=== PATIENT | female | born 1995 | race Caucasian/White ===

== ENCOUNTER 2022-05-08 11:38 | Emergency (ER) | payer SELFPAY ==
[2022-05-08 11:39] VITALS: BP 116/73; PULSE 97; RESP 16; TEMP 35.5; O2SAT 98; BMI 33.8
--- NOTE | 2022-05-08 12:17 | EDS_ITS ---
HPI History of Present Illness Chief Complaint: Eye Problem Informant: patient Narrative Narrative: 1 week history of left eye itching and burning. With redness. Denies trauma. Patient history of both nearsighted and farsighted supposed to wear bifocals. Cannot recall her previous eye exam. Denies visual changes but denies headache. Denies nausea vomiting. She looked online and had noted possible glaucoma therefore did not want to ignore it. Seasonal allergies. Denies any daily medications at home. PFSH PFS Medical History no medical history Home Medications olopatadine 0.1 % eye drops (Pataday Twice Daily Relief) 1 drp LEFT EYE BID #5 mL 05/08/22 [Rx Last Taken Unknown] Allergy/AdvReac Type Severity Reaction Status Date / Time No Known Allergies Allergy Verified 05/08/22 11:43 ROS ROS ED Constitutional Constitutional ED: Denies chills, fever(s) or sweats Eyes Eyes: Reports other Details: Left eye erythema with itching ; Denies blurry vision or change in vision ENT ENT ED: Denies dysphagia or sore throat Cardiovascular Cardiovascular: Denies chest pain, leg edema, palpitations or racing heartbeat Respiratory/Chest Respiratory/Chest: Denies cough, dyspnea or dyspnea on exertion Gastrointestinal Gastrointestinal: Denies abdominal pain, diarrhea, nausea or vomiting Genitourinary Genitourinary ED: Denies dysuria, hematuria or urinary frequency Musculoskeletal Musculoskeletal: Denies back pain, extremity pain or neck pain Integumentary Denies rash or wounds Neurologic Neurologic: Denies headache(s), paresthesias or weakness EXAM Physical Exam Const Vital Signs: 05/08/22 11:39 Temperature 96 F L Temperature Source Temporal Pulse Rate 97 Respiratory Rate 16 Blood Pressure 116/73 Blood Pressure Mean 87 Pulse Ox 98 Oxygen Delivery Method Room Air Positive well nourished and well developed General Appearance ED: well developed and NAD HEENT Reports moist mucous membranes normocephalic and atraumatic Eyes PERRL and EOMs intact bilaterally Eyes Narrative: Left eye: There is erythema medial inferior sclera. Pupils not fixed. Consensual constriction with light evaluation. Visual acuity: 20/40 OD, 20/30 OS, 20/20 OU General Eye ED: Yes normal appearance of both eyes Neck no lymphadenopathy and supple General: Negative for tenderness Chest Wall Chest: Negative for tenderness Resp normal respiratory effort and normal air movement Effort and Inspection: symmetric chest movement; Negative for respiratory distress Cardio regular rate, regular rhythm and no murmurs Peripheral Pulses: pulses 2+ throughout GI normal to inspection, nondistended, normoactive bowel sounds and non-tender Palpation: Negative for guarding or rebound tenderness present Back/Spine no CVA tenderness and no thoracic nor lumbar tenderness Extremity normal to inspection General Extremety ED: Negative for edema or tenderness General Extremity: Negative for edema Neuro oriented x3 and no sensory deficits noted Sensorium / Orientation: awake and alert Skin no rashes or lesions noted and no wounds MDM MDM MDM Narrative Medical decision making narrative: Visual acuity better in left eye. Clinical history concerns for allergic conjunctivitis. She is placed on Pataday twice a day for her symptoms. She is given follow-up with ophthalmology. No clinical symptoms for glaucoma. Discharge Plan Triage Chief Complaint: Eye Problem ED Provider: Miguel Rocha Dx/Rx/DC Orders Clinical Impression: Acute allergic conjunctivitis, Redness of eye, left, Itch of eye, left Instructions: ED Conjunctivitis, Allergic Prescriptions: New olopatadine [Pataday Twice Daily Relief] 0.1 % drops 1 drp LEFT EYE BID Qty: 5 0RF Rx Instructions: separate doses by at least 6-8 hours Primary Care Provider: Care Physician,No Primary Referrals: Chandrakant Mcclellan MD [Med Staff - Active Staff] - 3-5 Days [facility] Doctor,Out of [Non-Staff] - Activity Restrictions/Additional Instructions: Use eyedrops left eye twice a day for symptoms. Follow-up with ophthalmology as an outpatient. Disposition Disposition: Home, Self Care
--- NOTE | 2022-05-08 13:01 | CM.ED ---
FRANK noted that patient has no PCP and no insurnance. SW provided patient with financial packet. Patient moved to [place] from [place]. Patient said that as a result of Riki Barraza she moved to [place] as I am a walking felony.. I still have my IUD inside me. SW also provided her with resource list and [facility] phone number for crisis. Adelina SCHOFIELD
== END 2022-05-08 13:14 | disposition home or self-care (01) ==
PROVIDERS: Emergency Provider Emergency Medicine; Visit Provider Emergency Medicine
DX: H10.12 Acute atopic conjunctivitis, left eye (principal)
CPT/HCPCS: 99282

== ENCOUNTER 2023-06-12 16:11 | Emergency (ER) | payer MEDICAID, SELFPAY ==
[2023-06-12 16:12] VITALS: BP 107/70; PULSE 99; RESP 16; TEMP 36.1; O2SAT 100; BMI 28.8
--- NOTE | 2023-06-12 16:50 | ED.VIS.CHEST ---
HPI History of Present Illness Chief Complaint: Chest Other Informant: patient Narrative Narrative: 27-year-old female presenting to the emergency room with chest pain and palpitations. Patient states that she is about to enter her third trimester of . She states that she has been trying to get health insurance. She started applying 1 week ago. She states that she received word today that she had health insurance. She comes in today stating that she has been experiencing burning chest pain which is not uncommon for her but also has been having racing heart. She denies any vaginal bleeding or leakage of fluid. No shortness of breath. She has taken some Tums. She notes that this is her third . She had a miscarriage previously. No leg swelling. She notes that the burning in her chest is midsternal starts near the xiphoid and radiates up towards her sternal notch. Heart races intermittently. She states that she is genetically predispositions to heart attack but has never had 1. She states that what she means by this is that she has symptoms of heart attack that never amounts to a heart attack. Patient has been taking vitamins. She admits to vaping. PFSH PFSH Home Medications calcium carbonate 200 mg calcium (500 mg) chewable tablet (Antacid (calcium carbonate)) 400 mg (2 x 200 mg calcium (500 mg)) PO Q4H PRN dyspepsia #60 tabs 06/12/23 [Rx Last Taken Unknown] Allergy/AdvReac Type Severity Reaction Status Date / Time No Known Allergies Allergy Verified 06/12/23 16:12 Social History Smoking Status: Heavy Smoker (>10/day) ROS ROS ED Constitutional Constitutional ED: Denies chills or weight loss Eyes Eyes: Denies change in vision or diplopia ENT ENT ED: Denies ear pain, rhinorrhea or sore throat Cardiovascular Cardiovascular: Reports chest pain, palpitations and racing heartbeat; Denies orthopnea Respiratory/Chest Respiratory/Chest: Denies cough, dyspnea, dyspnea on exertion or orthopnea Gastrointestinal Gastrointestinal: Reports other Details: Increased belching. ; Denies abdominal pain, diarrhea, nausea or vomiting Genitourinary Genitourinary ED: Denies dysuria, hematuria or urinary frequency Musculoskeletal Musculoskeletal: Denies arthralgias or myalgias Integumentary Denies abscess or rash Neurologic Neurologic: Denies headache(s) or weakness Psychiatric Psychiatric: Denies anxiety, depression, suicidal ideation or suicidal thoughts Endocrine Endocrinology: Denies polydipsia, polyphagia or polyuria Allergic/Immunologic Allergic/Immunologic ED: Denies mouth swelling, tongue swelling or urticaria EXAM Physical Exam Const Vital Signs: 06/12/23 16:12 06/12/23 17:57 06/12/23 18:23 Temperature 97 F L Temperature Source Temporal Pulse Rate 99 88 88 Respiratory Rate 16 19 H 18 Blood Pressure 107/70 103/66 104/67 Blood Pressure Mean 82 78 79 Pulse Ox 100 99 99 Oxygen Delivery Method Room Air Room Air Positive well nourished and well developed General Appearance ED: well developed HEENT Reports normocephalic, head/scalp atraumatic and moist mucous membranes Eyes PERRL and EOMs intact bilaterally Neck no lymphadenopathy, supple and no JVD Resp normal respiratory effort and clear to auscultation bilaterally Cardio regular rate, regular rhythm and no murmurs GI normal to inspection, nondistended, normoactive bowel sounds and non-tender Palpation: soft Back/Spine no CVA tenderness and normal ROM Extremity normal to inspection General Extremety ED: Negative for edema General Extremity: Negative for edema Neuro oriented x3 and CN's II-XII intact bilaterally Sensorium / Orientation: alert Motor Exam: strength 5/5 throughout Psych Mood & Affect: Negative for depressed or tearful Skin no rashes or lesions noted and no wounds MDM MDM MDM Narrative Medical decision making narrative: Bedside ultrasound shows a heart rate of 138 bpm. Patient has good movement and the patient can feel movement. White count is 15.7 hemoglobin 10.6. There is 7 bands. 14 lymphocytes 67 neutrophils. 3 myelocytes. BMP showed a glucose of 85. Liver enzymes showed an AST of 68 ALT of 57 total bilirubin 0.30 and alkaline phosphatase at 121. Magnesium 2.0. Urinalysis is Pont is a for cannabinoids and and a formal UA demonstrates 5-10 squamous cells rarer bacteria which most likely is a contaminant. Negative nitrates leukocyte esterase and 0-5 white cells. My independent interpretation of the chest x-ray is no acute process. The patient has had no dysrhythmias on the monitor. At this point I will write the patient to have some antacids and would recommend following up with [facility]. She is to refrain from vaping. She should continue her multivitamins. I did recommend [facility] follow-up as soon as possible. As far as the bandemia goes I am unclear of the significance at this time. She is not having any fevers rashes or infectious symptomology. Her chest x-ray does not show infection. The uterus is nontender. Patient and I did discuss these findings. History & Record Review Discussion w/independent historian: Patient Lab Data Attestation: I reviewed the patient's lab results. Labs: Laboratory Results - last 24 hr 06/12/23 16:56 WBC 15.7 H RBC 3.40 L Hgb 10.6 L Hct 32.2 L MCV 94.7 MCH 31.2 MCHC 32.9 RDW Std Deviation 44.7 H RDW Coeff of Melina 13.1 Plt Count 236 MPV 9.5 Neut % (Auto) Not Reportable Absolute Neuts (auto) 11.7 H Absolute Lymphs (auto) 2.20 Total Counted 100 Neutrophils % (Manual) 67 Band Neutrophils % 7 H Lymphocytes % (Manual) 14 L Monocytes % (Manual) 5 Eosinophils % (Manual) 2 Basophils % (Manual) 1 Metamyelocytes % 1 Myelocytes % 3 H Diff Path Review May foll Platelet Estimate ADEQUATE RBC Morphology N CHROM Anisocytosis RARE Macrocytosis RARE Sodium 138 Potassium 3.9 Chloride 108 H Carbon Dioxide 25.0 Anion Gap 5 BUN 11 Creatinine 0.60 Estim Creat Clear Calc 122.70 Est GFR (MDRD) Af Amer 156 Est GFR (MDRD) Non-Af 129 BUN/Creatinine Ratio 18.5 Glucose 85 Calcium 9.0 Magnesium 2.0 Total Bilirubin 0.30 Direct Bilirubin 0.11 AST 68 H ALT 57 H Alkaline Phosphatase 121 H Total Protein 6.9 Albumin 2.9 L Globulin 4.0 Urine Color Yellow Urine Clarity Cloudy Urine pH 8.0 Ur Specific [place] 1.010 Urine Protein 15 H Urine Glucose (UA) Normal Urine Ketones Negative Urine Occult Blood Negative Urine Nitrite Negative Urine Bilirubin Negative Urine Urobilinogen Normal Ur Leukocyte Esterase 25 H Urine RBC 0 SEEN Urine WBC 0-5 SEEN Ur Squamous Epith Cells 5-10 SEEN Amorphous Sediment 3+ Urine Bacteria RARE Urine Mucus 0 SEEN Urine Opiates Screen NEGATIVE Urine Methadone Screen NEGATIVE Ur Barbiturates Screen NEGATIVE Ur Phencyclidine Scrn NEGATIVE Ur Amphetamines Screen NEGATIVE MDMA (Ecstasy) Screen NEGATIVE U Benzodiazepines Scrn NEGATIVE Urine Cocaine Screen NEGATIVE U Cannabinoids Screen POSITIVE H Ur Drug Screen Comment EKG Initial EKG: Attestation: I personally reviewed and interpreted this EKG as follows: Comments: Normal sinus rhythm with a ventricular rate of 97 bpm. No preexcitation or prolonged QT noted. Discharge Plan Triage Chief Complaint: Chest Other ED Provider: Nasir Greene Dx/Rx/DC Orders Clinical Impression: Heart palpitations, , Chest pain, GERD (gastroesophageal reflux disease), Bandemia Instructions: ED GERD (Adult), ED Palpitations, ED Established ... Prescriptions: New calcium carbonate [Antacid (calcium carbonate)] 200 mg calcium (500 mg) tablet,chewable 400 mg PO Q4H PRN (Reason: dyspepsia) Qty: 60 0RF Primary Care Provider: Care Physician,No Primary Referrals: Diamond Khoury MD [Med Staff - Active Staff] - As soon as possible Care Physician,No Primary [Primary Care Provider] -
[2023-06-12 17:07] LABS: Mucous, Urine 0 SEEN /hpf (<or=2+); Red Blood Cells-Urine 0 SEEN /hpf (0-5)
[2023-06-12 17:11] LABS: Color, Urine Yellow (Yellow); Glucose, Dipstick Normal (Normal); Hematocrit 32.2 % (37-47); Hemoglobin 10.6 g/dL (12.0-15.0); Ketone-Dipstick Negative (Negative); Leukocyte Esterase-Dipstick 25 /ul (Negative); Mean Corp Hgb Conc 32.9 g/dL (32-36); Mean Corpuscular Hgb 31.2 pg (27.0-32.0); Mean Corpuscular Volume 94.7 fL (81-99); Mean Platelet Vol. 9.5 fl (6.2-12.0); Nitrite-Dipstick Negative (Negative); Occult Blood-Urine Negative /ul (Negative); POSITIVE COUNT YES; POSITIVE MORPHOLOGY YES; Platelet Count 236 K/mm3 (150-450); Protein-Dipstick 15 mg/dl (Negative); RBC Distribution Width CV 13.1 % (11.6-14.6); RBC Distribution Width SD 44.7 fl (35.1-43.9); Urine Bilirubin Dipstick Negative (Negative); Urine Clarity Cloudy (Clear); Urine Urobilinogen Normal (Normal); White Blood Count 15.7 K/mm3 (4.4-11.0)
[2023-06-12 17:22] LABS: Differential Indicated MANUAL DIFF
[2023-06-12 17:28] LABS: AST(SGOT) 68 U/L (15-37); Alanine Aminotransfer ALT/SGPT 57 U/L (13-56); Albumin, Serum 2.9 g/dL (3.2-5.0); Alkaline Phosphatase 121 U/L (45-117); Anion Gap 5 (5-15); BUN 11 mg/dL (7-18); BUN/Creat Ratio 18.5 RATIO (10-20); Bilirubin, Direct 0.11 mg/dL (0.00-0.30); Chloride 108 mmol/L (98-107); EST Glomerular Filtration Rate 129 mL/min (>60); Est Glom Filt Rate - Afr Amer 156 mL/min (>60); Glucose 85 mg/dL (74-106); Potassium 3.9 mmol/L (3.5-5.1); Protein, Total 6.9 g/dL (6.4-8.2); Sodium Level 138 mmol/L (136-145)
[2023-06-12 17:29] LABS: Squamous Epithelial Cells - UA 5-10 SEEN /hpf (5-10); White Blood Cells 0-5 SEEN /hpf (0-5)
[2023-06-12 17:30] LABS: Amorphous Sediment 3+; Bacteria RARE /hpf (None Seen)
[2023-06-12 17:32] LABS: Amphetamine Urine VISTA NEGATIVE (<1000 ng/mL); Barbiturate Urine VISTA NEGATIVE (< 200 ng/mL); Benzodiazepine Urine VISTA NEGATIVE (< 200 ng/mL); Cocaine Urine VISTA NEGATIVE (< 300 ng/mL); Ecstacy Urine VISTA NEGATIVE (< 500 ng/mL); Methadone Urine VISTA NEGATIVE (< 300 ng/mL); PCP Urine VISTA NEGATIVE (< 25 ng/mL); THC Urine VISTA POSITIVE (< 50 ng/mL); Vista UDS pH Range 6
[2023-06-12 17:48] LABS: Basophil 1 % (0-1); Eosinophil 2 % (0-5); Lymphocyte 14 % (19-41); Metamyelocyte 1 % (0-1); Monocyte 5 % (0-10); Myelocyte 3 % (0-0); Neutrophil-Band 7 % (0-5); Neutrophil-Segmented 67 % (47-70); Total Cells Counted 100 (MANUAL DIFF)
[2023-06-12 17:51] LABS: Absolute Neutrophil Count 11.7 X10^3/uL (2.0-7.7)
[2023-06-12 17:52] LABS: Platelet Estimate ADEQUATE (ADEQ); Red Cell Morphology N CHROM NORMAL (NORM C&C)
[2023-06-12 17:53] LABS: Anisocytosis RARE; Macrocytosis RARE
[2023-06-12 17:57] VITALS: BP 103/66; PULSE 88; RESP 19; O2SAT 99
--- NOTE | 2023-06-12 18:03 | RAD_ITS ---
STUDY: X-RAY CHEST REASON FOR EXAM: Female, 27 years old. chest pain -- TECHNIQUE: Single AP portable view of the chest. COMPARISON: None. FINDINGS: The lungs are clear and expanded. There is no demonstrated pleural abnormality. Normal size heart. Normal mediastinum and zion. Normal visualized pulmonary arteries. Normal visualized aortic arch and descending thoracic aorta. Normal visualized thoracic spine. Normal visualized ribs, clavicles, and shoulders. There is no demonstrated abnormality of the visualized soft tissue structures of the upper abdomen. RAD/Chest 1 View IMPRESSION: Normal x-ray examination of the chest. Electronically Signed: Mono Donovan MD at 18:54 EST ,
[2023-06-12 18:23] VITALS: BP 104/67; PULSE 88; RESP 18; O2SAT 99
[2023-06-15 13:23] LABS: Pathologist Review Reviewed
== END 2023-06-12 18:33 | disposition home or self-care (01) ==
PROVIDERS: Emergency Provider Emergency Medicine; Visit Provider Emergency Medicine
DX: O99.891 Other specified diseases and conditions complicating pregnancy (principal); O99.613 Diseases of the digestive system complicating pregnancy, third trimester; O99.113 Other diseases of the blood and blood-forming organs and certain disorders involving the immune mechanism complicating pregnancy, third trimester; O99.333 Smoking (tobacco) complicating pregnancy, third trimester; K21.9 Gastro-esophageal reflux disease without esophagitis; R07.9 Chest pain, unspecified; R00.2 Palpitations; F17.200 Nicotine dependence, unspecified, uncomplicated; D72.825 Bandemia; Z3A.00 Weeks of gestation of pregnancy not specified
CPT/HCPCS: 71045; 80048; 80076; 80307; 81001; 83735; 85025; 93005; 99284; A4216

== ENCOUNTER 2023-08-06 20:45 | Outpatient (CLI) | payer MEDICAID, SELFPAY ==
[2023-08-06 21:01] VITALS: BMI 28.6
[2023-08-06 21:53] VITALS: BP 113/65; PULSE 94; TEMP 36.8; O2SAT 100
[2023-08-06] MEDS: Lactated Ringers 1,000 ML 999 ML IV (21:56)
[2023-08-06 22:03] LABS: Mucous, Urine 0 SEEN /hpf (<or=2+); Red Blood Cells-Urine 0 SEEN /hpf (0-5)
[2023-08-06 22:08] LABS: Color, Urine Yellow (Yellow); Glucose, Dipstick Normal (Normal); Ketone-Dipstick 5 mg/dl (Negative); Leukocyte Esterase-Dipstick 100 /ul (Negative); Nitrite-Dipstick Negative (Negative); Occult Blood-Urine Negative /ul (Negative); Protein-Dipstick 15 mg/dl (Negative); Specific Gravity, Urine 1.015 (1.002-1.030); Urine Bilirubin Dipstick 1 mg/dL (Negative); Urine Clarity Clear (Clear); Urine Urobilinogen 4 mg/dl (Normal)
[2023-08-06 22:10] LABS: Absolute Lymphocyte Count 2.27 X10^3/uL (0.83-4.51); Absolute Neutrophil Count 10.6 X10^3/uL (2.0-7.7); Basophil% 0.7 % (0-1); Eosinophil# 0.24 X10^3/uL; Eosinophils% 1.7 % (0-5); Hematocrit 33.2 % (37-47); Hemoglobin 11.2 g/dL (12.0-15.0); Lymphocyte # 2.27 X10^3/ul (0.83-4.51); Lymphocyte % 16.2 % (19-41); Mean Corp Hgb Conc 33.7 g/dL (32-36); Mean Corpuscular Hgb 31.5 pg (27.0-32.0); Mean Corpuscular Volume 93.5 fL (81-99); Mean Platelet Vol. 10.2 fl (6.2-12.0); Monocyte# 0.72 X10^3/uL; Monocyte% 5.1 % (0-10); NRBC Flagged by Analyzer 0 % (0-5); Neutrophil # 10.56 X10^3/uL (2.7-7.7); Neutrophil % 75.4 % (47-70); Platelet Count 329 K/mm3 (150-450); RBC Distribution Width CV 13.4 % (11.6-14.6); RBC Distribution Width SD 45.8 fl (35.1-43.9); Red Blood Count 3.55 M/mm3 (4.2-5.4)
[2023-08-06 22:16] LABS: Bacteria RARE /hpf (None Seen); Squamous Epithelial Cells - UA 0-5 SEEN /hpf (5-10); White Blood Cells 0-5 SEEN /hpf (0-5)
[2023-08-06 22:27] LABS: Amphetamine Urine VISTA NEGATIVE (<1000 ng/mL); Barbiturate Urine VISTA NEGATIVE (< 200 ng/mL); Benzodiazepine Urine VISTA NEGATIVE (< 200 ng/mL); Cocaine Urine VISTA NEGATIVE (< 300 ng/mL); Ecstacy Urine VISTA NEGATIVE (< 500 ng/mL); Methadone Urine VISTA NEGATIVE (< 300 ng/mL); PCP Urine VISTA NEGATIVE (< 25 ng/mL); THC Urine VISTA POSITIVE (< 50 ng/mL); Vista UDS pH Range 7
[2023-08-06 22:57] LABS: HIV - WCH Non-Reactive (Nonreactive); Rubella IgG Reactive (Nonreactive); Syphilis Antibodies Non-reactive
[2023-08-06 23:08] LABS: Hepatitis B Surface Antigen Non-Reactive (Nonreactive); Hepatitis C Antibody Non-Reactive (Nonreactive)
--- NOTE | 2023-08-06 23:12 | OB.TRI.HP_ITS ---
HPI - General HPI Narrative KATHIA LERMA, is a 27 F at 35 weeks gestation who arrived by squad for abdominal pain. Patient thrashing around in bed and difficult to calm down to initially answer questions. Poor historian. Stated stomach has been hurting all day. Reports only being seen by [facility] [facility] twice during this . [facility] ultrasound completed [facility]. Denies any problems with . Denies any loss of fluid or vaginal bleeding. Maternal Data Information NAYANA Calculator Estimated Delivery Date Method Current WG Current Estimate 09/10/23 Manual 35w 0d PFSH PFSH Home Medications calcium carbonate 200 mg calcium (500 mg) chewable tablet (Antacid (calcium ca rbonate)) 400 mg (2 x 200 mg calcium (500 mg)) PO Q4H PRN dyspepsia #60 tabs 06/12/23 [Rx Last Taken Unknown] Allergy/AdvReac Type Severity Reaction Status Date / Time No Known Allergies Allergy Verified 06/12/23 16:12 Social History Smoking Status: Heavy Smoker (>10/day) ROS Eyes Eyes: Denies blurry vision Cardiovascular Cardiovascular: Reports none; Denies chest pain at rest, chest pain with activity or dizziness Respiratory/Chest Respiratory/Chest: Denies cough or dyspnea Gastrointestinal Gastrointestinal: Reports none and other; Denies diarrhea or vomiting Genitourinary Genitourinary: Denies dysuria Musculoskeletal Musculoskeletal: Reports none Integumentary Integumentary: Reports none; Denies rash Neurologic Neurologic: Denies dizziness, headache(s) or other visual disturbances Psychiatric Psychiatric: Reports anxiety, cognitive impairment, depression and mood swings Physical Exam Const alert General Appearance: cooperative Orientation / Consciousness: awake HEENT normocephalic Eyes General Eye: normal appearance of both eyes Neck full ROM Chest inspection of chest normal Resp normal respiratory effort and normal air movement Effort and Inspection: symmetric chest movement Auscultation: clear to auscultation bilaterally Cardio regular rate GI soft to palpation, non-tender and non-distended Inspection: and other Back/Spine normal ROM Extremity full ROM, normal capillary refill and no calf tenderness Skin no rashes or lesions noted Neuro oriented x3 and CN's II-XII intact bilaterally Psych Appearance: unkempt and disheveled Activity / Motor Behavior: psychomotor agitation, fidgetting, disorganized and restless Speech: rapid and pressured Mood & Affect: anxious Thought Process: disorganized, confused and flight of ideas Memory / Cognition: cognition impaired NST FHR Rate Baby A Baseline: 130 Variability:: Moderate Accelerations:: 15 x 15 Decelerations:: None NST Reactive:: Yes FHR Category:: Category I Uterine Activity:: Irregular Assessment & Plan (1) Abdominal pain affecting : (2) 35 weeks gestation of : (3) care insufficient: (4) History of of child after period: COMMENT: 2 year old son of SIDS (5) Marijuana use: (6) Tobacco dependence: (7) Anxiety: (8) History of bipolar disorder: (9) History of methadone use: PLAN: Plan CE 360/-3 Abdominal non tender with palpation No vaginal bleeding or loss of fluid Start IV and give fluid bolus labs UA/ Urine tox with consent NST reactive- irregular contractions that palpate mild and relaxed in between Extended monitoring and will recheck for cervical change Dr. Byrd notified and is collaborating physician
[2023-08-06 23:44] VITALS: BP 124/71; PULSE 81
[2023-08-07 02:10] LABS: Group B Strep DNA By PCR Negative (Negative); Internal Control PASS; Probe Check PASS; Specimen Processing Control PASS
== END 2023-08-07 00:42 | disposition home or self-care (01) ==
LOC: WPOUT 20:57 → WP 20:57
PROVIDERS: Visit Provider Advanced Practice Midwife
DX: O99.891 Other specified diseases and conditions complicating pregnancy (principal); F12.99 Cannabis use, unspecified with unspecified cannabis-induced disorder; O99.333 Smoking (tobacco) complicating pregnancy, third trimester; O09.33 Supervision of pregnancy with insufficient antenatal care, third trimester; O99.323 Drug use complicating pregnancy, third trimester; O99.343 Other mental disorders complicating pregnancy, third trimester; F17.200 Nicotine dependence, unspecified, uncomplicated; R10.9 Unspecified abdominal pain; F41.9 Anxiety disorder, unspecified; Z3A.35 35 weeks gestation of pregnancy
CPT/HCPCS: 96365; 59025; 59050; 80307; 81001; 85025; 86703; 86762; 86780; 86803; 86850; 86870; 86900; 86901; 87081; 87340; 87653; 99221; G0378

== ENCOUNTER 2023-08-23 09:48 | Inpatient (IN) | payer MEDICAID, SELFPAY ==
[2023-08-23] VITALS (17 sets, daily range): BP systolic 107–136; BP diastolic 60–92; PULSE 62–85; RESP 16–18; TEMP 36.1–37; O2SAT 91–100; BMI 31.8
[2023-08-23] MEDS: Lactated Ringers 1,000 ML 999 ML IV (09:55)
[2023-08-23 10:18] LABS: Absolute Lymphocyte Count 2.74 X10^3/uL (0.83-4.51); Absolute Neutrophil Count 8.6 X10^3/uL (2.0-7.7); Basophil% 0.8 % (0-1); Eosinophil# 0.27 X10^3/uL; Eosinophils% 2.1 % (0-5); Hematocrit 35.8 % (37-47); Hemoglobin 12.4 g/dL (12.0-15.0); Lymphocyte # 2.74 X10^3/ul (0.83-4.51); Lymphocyte % 21.4 % (19-41); Mean Corp Hgb Conc 34.6 g/dL (32-36); Mean Corpuscular Hgb 32.3 pg (27.0-32.0); Mean Corpuscular Volume 93.2 fL (81-99); Mean Platelet Vol. 10.3 fl (6.2-12.0); Monocyte# 0.96 X10^3/uL; Monocyte% 7.5 % (0-10); NRBC Flagged by Analyzer 0 % (0-5); Neutrophil # 8.56 X10^3/uL (2.7-7.7); Neutrophil % 66.9 % (47-70); Platelet Count 311 K/mm3 (150-450); RBC Distribution Width CV 13.2 % (11.6-14.6); RBC Distribution Width SD 44.6 fl (35.1-43.9); Red Blood Count 3.84 M/mm3 (4.2-5.4); White Blood Count 12.8 K/mm3 (4.4-11.0)
[2023-08-23] MEDS: Oxytocin 10 UNITS/ML Vial IM (10:44)
[2023-08-23] MEDS: Oxytocin 15 Units/NS 250ml 15 UNITS/250 ML IV.SOLN 83 UNITS IV (10:50)
--- NOTE | 2023-08-23 10:56 | EX.PCM.OBRPT ---
Assessment & Plan (1) Supervision of other high risk pregnancies, third trimester: (2) 37 weeks gestation of : (3) Polysubstance use disorder: (4) care insufficient: (5) History of bipolar disorder: Maternal Data Information NAYANA Calculator Estimated Delivery Date Method Current WG Current Estimate 09/10/23 Manual 37w 3d Final NAYANA: 09/12/23 Gestational age: 37 3/7 Vaginal Delivery Maternal Presentation Maternal Presentation: Active Labor Operative Information Date of Procedure: 08/23/23 Pre-Operative Diagnosis: labor Post-Operative Diagnosis: same Surgery / Procedure Performed: Spontaneous Vaginal Delivery Type of Anesthesia: None Drain: - (none) Estimated Blood Loss: 300 Time of Delivery: 10:43 Findings Description of Procedure: A vigorous female infant was delivered STAS over an intact perineum. The remainder the infant was delivered with maternal pushing and gentle traction only in less than 15 seconds. The Pitocin infusion was initiated for active management of the third stage. The cord was clamped and cut after 1 minute. The was attended to by the waiting nursing staff. The placenta was delivered spontaneously and but the membranes fragmented. Several passes were made with a sponge to the fundus to remove remaining membranes. The uterus was cleared of all clots and debris. The fundus was firm. The cervix and vagina were intact. Sponge and needle counts were correct. A vaginal sweep was completed by me. Presentation: STAS Amniotic Membrane Rupture Type: Artificial Amniotic Fluid Description: Clear Placental Delivery Description: Spontaneous Placenta Disposition: [facility] Cord Vessel Description: 3 Vessels Cord Entanglement: None Infant A Gender: Female (Corrine) (1 minute): 8 (5 minute): 9 Delayed Cord Clamping: Yes Post Vaginal Delivery Medications Given After Delivery: IV Pitocin and IM Pitocin Episiotomy Description: None Laceration: None Complication Complications: None
[2023-08-23 10:58] LABS: Syphilis Antibodies Non-reactive
--- NOTE | 2023-08-23 11:02 | PCM.HP.OB ---
HPI - General General Date of Admission: 08/23/23 Date of Service: 08/23/23 Chief Complaint: labor HPI Narrative KATHIA LERMA, is a 27 female 3 para 1-0-0-0 at 37-3/7 weeks by last menstrual period. Patient did not have any ultrasounds that we are aware of during the . She had very scant care. She only had 3 office visits that I can see. Patient has a history of 1 previous vaginal delivery that she reports she had 1/4 degree laceration with. She reports that baby of SIDS at almost 3 years of age. She has a history of polysubstance use. She has a history of bipolar disorder. She is Rh- and did receive Rh prophylaxis during the . Maternal Data Information NAYANA Calculator Estimated Delivery Date Method Current WG Current Estimate 09/10/23 Manual 37w 3d Final NAYANA: 09/10/23 Gestational age: 37 3/7 PFSH PFSH Allergy/AdvReac Type Severity Reaction Status Date / Time No Known Allergies Allergy Verified 08/23/23 09:59 Social History Smoking Status: Heavy Smoker (>10/day) ROS Constitutional Constitutional: Denies fatigue, fever(s) or malaise Eyes Eyes: Denies change in vision ENT HEENT: Denies dizziness or headache(s) Cardiovascular Cardiovascular: Denies chest pain, dyspnea or lightheadedness Respiratory/Chest Respiratory/Chest: Denies cough or dyspnea Gastrointestinal Gastrointestinal: Denies change in bowel habits Genitourinary Genitourinary: Denies burning urination or genital lesions Integumentary Integumentary: Denies rash Neurologic Neurologic: Denies confusion, dizziness, headache(s), numbness or weakness Vital Signs Vital Signs Vital Signs: Weight Weight: 81.647 kg Body Mass Index (BMI) 31.8 Physical Exam Const alert and no apparent distress General Appearance: cooperative HEENT normocephalic Resp normal respiratory effort Cardio regular rate GI soft to palpation GI Narrative: gravid, nontender, appropriate for gestational age Extremity no calf tenderness General Extremity: edema Skin no wounds Rashes: No rashes noted Psych activity/motor behavior normal Labs Labs Labs: Blood Type A NEGATIVE Antibody Screen POSITIVE Hct 35.8 % (37-47) L Hgb 12.4 g/dL (12.0-15.0) Syphilis Total Ab Non-reactive Rubella IgG Antibody Reactive (Nonreactive) Hep Bs Antigen Non-Reactive (Nonreactive) Hepatitis C Antibody Non-Reactive (Nonreactive) HIV 1&2 Antibody Non-Reactive (Nonreactive) Group B Strep DNA Negative (Negative) Assessment & Plan (1) 37 weeks gestation of : PLAN: Patient admitted in active labor, delivery is eminent. History of fourth degree laceration. At this point there is not time to prepare patient for delivery. Risk benefits and alternatives of vaginal delivery reviewed and we will proceed with this. Estimated weight is less than 4500 g clinically and pelvis clinically adequate to expect vaginal delivery. Patient will need addiction social worker consult. Urine tox screen ordered per our policy guidelines and recommendations. GBS neg (2) Supervision of other high risk pregnancies, third trimester: (3) Polysubstance use disorder: (4) care insufficient:
[2023-08-23] MEDS: Methylergonovine 0.2 MG/ML Ampul 0.200000000000000011 MG IM (12:10)
[2023-08-23 12:39] LABS: Amphetamine Urine VISTA NEGATIVE (<1000 ng/mL); Barbiturate Urine VISTA NEGATIVE (< 200 ng/mL); Benzodiazepine Urine VISTA NEGATIVE (< 200 ng/mL); Cocaine Urine VISTA NEGATIVE (< 300 ng/mL); Ecstacy Urine VISTA NEGATIVE (< 500 ng/mL); Methadone Urine VISTA NEGATIVE (< 300 ng/mL); PCP Urine VISTA NEGATIVE (< 25 ng/mL); THC Urine VISTA NEGATIVE (< 50 ng/mL); Vista UDS pH Range 7
[2023-08-24] VITALS (7 sets, daily range): BP systolic 109–130; BP diastolic 60–72; PULSE 71–98; RESP 16; TEMP 36.3–37; O2SAT 97–98
[2023-08-24 05:20] LABS: Absolute Lymphocyte Count 3.22 X10^3/uL (0.83-4.51); Absolute Neutrophil Count 12.5 X10^3/uL (2.0-7.7); Basophil% 0.6 % (0-1); Eosinophil# 0.21 X10^3/uL; Eosinophils% 1.2 % (0-5); Hematocrit 26.7 % (37-47); Hemoglobin 9.3 g/dL (12.0-15.0); Lymphocyte # 3.22 X10^3/ul (0.83-4.51); Lymphocyte % 18.2 % (19-41); Mean Corp Hgb Conc 34.8 g/dL (32-36); Mean Corpuscular Hgb 32.6 pg (27.0-32.0); Mean Corpuscular Volume 93.7 fL (81-99); Mean Platelet Vol. 10.1 fl (6.2-12.0); Monocyte# 1.34 X10^3/uL; Monocyte% 7.6 % (0-10); NRBC Flagged by Analyzer 0 % (0-5); Neutrophil # 12.54 X10^3/uL (2.7-7.7); Neutrophil % 70.8 % (47-70); Platelet Count 238 K/mm3 (150-450); RBC Distribution Width CV 13.2 % (11.6-14.6); Red Blood Count 2.85 M/mm3 (4.2-5.4); White Blood Count 17.7 K/mm3 (4.4-11.0)
--- NOTE | 2023-08-24 08:19 | PCM.PN.OB ---
Subjective Subjective Doing well per patient and nursing staff. Ambulating and taking PO without difficulty. Voiding and passing flatus. Pain controlled. , services for assistance. Denies headache, visual changes, chest pain, shortness of breath, leg pain or increased bleeding. Lochia normal. Objective Data Objective Data Vital Signs: Vital Signs Temp Pulse Resp BP Pulse Ox O2 Del Method 98.6 F 77 16 109/60 97 Room Air 08/24/23 04:18 08/24/23 04:19 08/24/23 04:18 08/24/23 04:19 08/24/23 04:19 08/24/23 04:18 Oxygen Delivery Method Room Air Weight: 180 lb Body Mass Index (BMI) 31.8 Intake & Output: Intake and Output for Last 24 Hours 08/22/23 08/23/23 08/24/23 23:59 23:59 23:59 Intake Total 1165.75 / 1165.75 Output Total 1050 / 1050 Balance 115.75 / 115.75 Lab / Micro Data 08/24/23 05:15 Labs: Laboratory Results - last 24 hr 08/23/23 10:10: WBC 12.8 H, RBC 3.84 L, Hgb 12.4, Hct 35.8 L, MCV 93.2, MCH 32.3 H, MCHC 34.6, RDW Std Deviation 44.6 H, RDW Coeff of Melina 13.2, Plt Count 311, MPV 10.3, Immature Gran % (Auto) 1.300 H, Neut % (Auto) 66.9, Lymph % (Auto) 21.4, [place] % (Auto) 7.5, Eos % (Auto) 2.1, Baso % (Auto) 0.8, Absolute Neuts (auto) 8.6 H, Absolute Lymphs (auto) 2.74, Nucleated RBC % 0, Syphilis Total Ab Non-reactive, Blood Type A NEGATIVE, Antibody Screen POSITIVE, Antibody Identification ANTI-D 08/23/23 12:15: Urine Opiates Screen NEGATIVE, Urine Methadone Screen NEGATIVE, Ur Barbiturates Screen NEGATIVE, Ur Phencyclidine Scrn NEGATIVE, Ur Amphetamines Screen NEGATIVE, MDMA (Ecstasy) Screen NEGATIVE, U Benzodiazepines Scrn NEGATIVE, Urine Cocaine Screen NEGATIVE, U Cannabinoids Screen NEGATIVE, Ur Drug Screen Comment 08/23/23 14:00: Screen NEGATIVE, Baby's Blood Type O POSITIVE, Baby's OSVALDO NEGATIVE 08/24/23 05:15: WBC 17.7 H, RBC 2.85 L, Hgb 9.3 L, Hct 26.7 L, MCV 93.7, MCH 32.6 H, MCHC 34.8, RDW Std Deviation 45.0 H, RDW Coeff of Melina 13.2, Plt Count 238, MPV 10.1, Immature Gran % (Auto) 1.600 H, Neut % (Auto) 70.8 H, Lymph % (Auto) 18.2 L, [place] % (Auto) 7.6, Eos % (Auto) 1.2, Baso % (Auto) 0.6, Absolute Neuts (auto) 12.5 H, Absolute Lymphs (auto) 3.22, Nucleated RBC % 0 ROS Constitutional Constitutional: Reports systems reviewed and no addt'l complaints, except as documented; Denies headache(s) Eyes Eyes: Denies acute decrease in peripheral vision, blurry vision or change in vision ENT HEENT: Reports systems reviewed and no addt'l complaints, except as documented Cardiovascular Cardiovascular: Denies chest pain or dizziness Respiratory/Chest Respiratory/Chest: Denies cough, dyspnea, dyspnea on exertion, shortness of breath at rest or shortness of breath with exertion Gastrointestinal Gastrointestinal: Denies abdominal pain, diarrhea, nausea or vomiting Genitourinary Genitourinary: Denies abdominal discomfort Musculoskeletal Musculoskeletal: Denies limited range of motion Integumentary Integumentary: Reports systems reviewed and no addt'l complaints, except as documented Neurologic Neurologic: Reports systems reviewed and no addt'l complaints, except as documented Psychiatric Psychiatric: Reports systems reviewed and no addt'l complaints, except as documented Endocrine Endocrinology: Reports systems reviewed and no addt'l complaints, except as documented Hematologic/Lymphatic Hematologic/Lymphatic: Reports systems reviewed and no addt'l complaints, except as documented Allergic/Immunologic Allergic/Immunologic: Reports systems reviewed and no addt'l complaints, except as documented Physical Exam Const alert and oriented x3 General Appearance: cooperative Orientation / Consciousness: awake, oriented to person, oriented to place and oriented to time Exam Limitations: no limitations HEENT normocephalic Head and Scalp: normal to inspection, normocephalic and atraumatic Face and Sinus: normal facial exam Eyes General Eye: normal appearance of both eyes Neck full ROM Chest Chest: symmetrical chest wall rise Resp normal respiratory effort and normal air movement Auscultation: clear to auscultation bilaterally Cardio regular rate, regular rhythm, S1 normal heart sound, S2 normal heart sound, no murmurs, no rub, no gallops and no clicks GI normal to inspection, nondistended, normoactive bowel sounds and non-tender appearance of the vagina normal Bladder / Kidney Exam: no CVA tenderness Back/Spine normal ROM Extremity normal to inspection and full ROM Skin no rashes or lesions noted Neuro oriented x3 and moves all extremities Sensorium / Orientation: awake, alert and oriented to person Assessment & Plan (1) Polysubstance use disorder: (2) History of methadone use: (3) History of bipolar disorder: (4) Anxiety: (5) Tobacco dependence: (6) Marijuana use: (7) History of of child after period: COMMENT: 3 year old son of SIDS PLAN: Plan 1) PPD#1 2) Routine PP care 3) Pain management 4) forestry conservation worker consult 5) D/C home home tomorrow 6) Follow up in 2 weeks and 6 weeks
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
[2023-08-24] MEDS: Rho(D) Immune Globulin 300 MCG (1500 Unit) Syringe IV (18:31)
[2023-08-25 01:37] VITALS: BP 122/70; PULSE 76; O2SAT 97
[2023-08-25 01:57] VITALS: BP 122/70; PULSE 79; RESP 16; TEMP 36.2; O2SAT 97
--- NOTE | 2023-08-25 05:40 | PCM.PN.OB ---
Subjective Subjective Doing well per patient and nursing staff. Ambulating and taking PO without difficulty. Voiding and passing flatus. Pain controlled. Bottlefeeding. Denies headache, visual changes, chest pain, shortness of breath, leg pain or increased bleeding. Lochia normal. Objective Data Objective Data Vital Signs: Vital Signs Temp Pulse Resp BP Pulse Ox O2 Del Method 97.2 F L 79 16 122/70 H 97 Room Air 08/25/23 01:57 08/25/23 01:57 08/25/23 01:57 08/25/23 01:57 08/25/23 01:57 08/25/23 01:57 Oxygen Delivery Method Room Air Weight: 180 lb Body Mass Index (BMI) 31.8 Intake & Output: Intake and Output for Last 24 Hours 08/23/23 08/24/23 08/25/23 23:59 23:59 23:59 Intake Total 1165.75 / 1165.75 Output Total 1050 / 1050 Balance 115.75 / 115.75 Lab / Micro Data 08/24/23 05:15 ROS Constitutional Constitutional: Reports systems reviewed and no addt'l complaints, except as documented; Denies headache(s) Eyes Eyes: Denies acute decrease in peripheral vision, blurry vision or change in vision ENT HEENT: Reports systems reviewed and no addt'l complaints, except as documented Cardiovascular Cardiovascular: Denies chest pain or dizziness Respiratory/Chest Respiratory/Chest: Denies cough, dyspnea, dyspnea on exertion, shortness of breath at rest or shortness of breath with exertion Gastrointestinal Gastrointestinal: Denies abdominal pain, diarrhea, nausea or vomiting Genitourinary Genitourinary: Denies abdominal discomfort or movement Musculoskeletal Musculoskeletal: Denies limited range of motion Integumentary Integumentary: Reports systems reviewed and no addt'l complaints, except as documented Neurologic Neurologic: Reports systems reviewed and no addt'l complaints, except as documented Psychiatric Psychiatric: Reports systems reviewed and no addt'l complaints, except as documented Endocrine Endocrinology: Reports systems reviewed and no addt'l complaints, except as documented Hematologic/Lymphatic Hematologic/Lymphatic: Reports systems reviewed and no addt'l complaints, except as documented Allergic/Immunologic Allergic/Immunologic: Reports systems reviewed and no addt'l complaints, except as documented Physical Exam Const alert and oriented x3 General Appearance: cooperative Orientation / Consciousness: awake, oriented to person, oriented to place and oriented to time Exam Limitations: no limitations HEENT normocephalic Head and Scalp: normal to inspection, normocephalic and atraumatic Face and Sinus: normal facial exam Eyes General Eye: normal appearance of both eyes Neck full ROM Chest Chest: symmetrical chest wall rise Resp normal respiratory effort and normal air movement Auscultation: clear to auscultation bilaterally Cardio regular rate, regular rhythm, S1 normal heart sound, S2 normal heart sound, no murmurs, no rub, no gallops and no clicks GI normal to inspection, nondistended, normoactive bowel sounds and non-tender appearance of the vagina normal Bladder / Kidney Exam: no CVA tenderness Back/Spine normal ROM Extremity normal to inspection and full ROM Skin no rashes or lesions noted Neuro oriented x3 and moves all extremities Sensorium / Orientation: awake, alert and oriented to person Motor Exam: clonus absent Deep Tendon Reflexes: Rt Patellar (L4): 2+ and Lt Patellar (L4): 2+ Assessment & Plan (1) Polysubstance use disorder: (2) Vaginal delivery: (3) Acute blood loss anemia: (4) History of methadone use: (5) History of bipolar disorder: (6) Anxiety: (7) Tobacco dependence: (8) Marijuana use: (9) History of of child after period: COMMENT: 3 year old son of SIDS PLAN: Plan 1) Routine PP care 2) Pain management 3) Bottle feeding 4) Iron for anemia 5) Follow up in 2 weeks and 6 weeks
--- NOTE | 2023-08-25 05:42 | PCM.DC.SUM ---
Providers Date of Admission: 08/23/23 Primary Care Physician: Miya Primary Care Phys Reason For Visit: LABOR AND DELIVERY Diagnosis Discharge Diagnosis (1) Polysubstance use disorder: Status: Acute Code(s): F19.90 - Other psychoactive substance use, unspecified, uncomplicated (2) Vaginal delivery: Status: Acute Code(s): O80 - Encounter for full-term uncomplicated delivery (3) Acute blood loss anemia: Status: Acute Code(s): D62 - Acute posthemorrhagic anemia (4) History of methadone use: Status: Acute Code(s): F11.91 - Opioid use, unspecified, in remission (5) History of bipolar disorder: Status: Acute Code(s): Z86.59 - Personal history of other mental and behavioral disorders (6) Anxiety: Status: Acute Code(s): F41.9 - Anxiety disorder, unspecified (7) Tobacco dependence: Status: Acute Code(s): F17.200 - Nicotine dependence, unspecified, uncomplicated (8) Marijuana use: Status: Acute Code(s): F12.90 - Cannabis use, unspecified, uncomplicated (9) History of of child after period: Status: Acute Code(s): Z84.89 - Family history of other specified conditions Plan 1) Routine PP care 2) Pain management 3) Bottle feeding 4) Iron for anemia 5) Follow up in 2 weeks and 6 weeks Medications at Discharge Home Medications vitamins no.163-iron bis-gly 20 mg-folate no.10 1 mg tablet (PNV Tabs 20-1) 1 tab PO DAILY 08/23/23 Hospital Course Operations None Procedures None Summary of Care Provided Minutes Spent on Discharge: 15 Weight / BMI Weight Weight: 180 lb Body Mass Index (BMI) 31.8 ABG / Lab / Microbiology Data 08/24/23 05:15 D/C Instructions Discharge Diet: No restrictions Discharge Activity: Return to Normal Activity, May Drive, May Shower and May Take a Tub Bath May resume sexual activity in: 6 weeks Weight Bearing Status: Full weight bearing When: Follow up in 2 weeks and 6 weeks Meaningful Use Info Meaningful Use Diagnoses (Choose all that apply): None applicable Discharge Plan Admission Admit Date/Time: 08/23/23 09:48 Primary Reason for Your Visit: Vaginal Discharge Attending Provider: Abby Byrd Primary Care Provider: Care Physician,No Primary Discharge Orders/Prescriptions Prescriptions: No Action PNV Tabs 20-1 20 mg iron- 1 mg tablet 1 tab PO DAILY Referrals / Follow Up: Care Physician,No Primary [Primary Care Provider] - Disposition Disposition (needs filled in before D/C Order can be placed): Home, Self Care
--- NOTE | 2023-08-25 05:45 | PCM.DC.SUM ---
Providers Date of Admission: 08/23/23 Primary Care Physician: No Primary Care Phys Reason For Visit: LABOR AND DELIVERY Diagnosis Discharge Diagnosis (1) Polysubstance use disorder: Status: Acute Code(s): F19.90 - Other psychoactive substance use, unspecified, uncomplicated (2) Vaginal delivery: Status: Acute Code(s): O80 - Encounter for full-term uncomplicated delivery (3) Acute blood loss anemia: Status: Acute Code(s): D62 - Acute posthemorrhagic anemia (4) History of methadone use: Status: Acute Code(s): F11.91 - Opioid use, unspecified, in remission (5) History of bipolar disorder: Status: Acute Code(s): Z86.59 - Personal history of other mental and behavioral disorders (6) Anxiety: Status: Acute Code(s): F41.9 - Anxiety disorder, unspecified (7) Tobacco dependence: Status: Acute Code(s): F17.200 - Nicotine dependence, unspecified, uncomplicated (8) Marijuana use: Status: Acute Code(s): F12.90 - Cannabis use, unspecified, uncomplicated (9) History of of child after period: Status: Acute Code(s): Z84.89 - Family history of other specified conditions Plan 1) Routine PP care 2) Pain management 3) Bottle feeding 4) Iron for anemia 5) Follow up in 2 weeks and 6 weeks Medications at Discharge Home Medications vitamins no.163-iron bis-gly 20 mg-folate no.10 1 mg tablet (PNV Tabs 20-1) 1 tab PO DAILY 08/23/23 acetaminophen 500 mg tablet 1,000 mg (2 x 500 mg) PO Q6H PRN PRN Pain 1-10 Or Fever #0 tabs 08/25/23 ferrous sulfate 325 mg (65 mg iron) tablet 325 mg PO BID 30 days #60 tabs 08/25/23 ibuprofen 600 mg tablet 600 mg PO Q6H PRN PRN Pain Score 1-3 #0 tabs 08/25/23 Weight / BMI Weight Weight: 180 lb Body Mass Index (BMI) 31.8 ABG / Lab / Microbiology Data 08/24/23 05:15 D/C Instructions Discharge Diet: No restrictions May resume sexual activity in: 6 weeks Weight Bearing Status: Full weight bearing When: Follow up in 2 weeks and 6 weeks Meaningful Use Info Meaningful Use Diagnoses (Choose all that apply): None applicable Discharge Plan Admission Admit Date/Time: 08/23/23 09:48 Primary Reason for Your Visit: Vaginal Discharge Attending Provider: Abby Byrd Primary Care Provider: Care PhysicianMiya Primary Discharge Orders/Prescriptions Prescriptions: New acetaminophen 500 mg Tablet 1,000 mg PO Q6H PRN PRN (Reason: Pain 1-10 Or Fever) Qty: 0 0RF ibuprofen 600 mg Tablet 600 mg PO Q6H PRN PRN (Reason: Pain Score 1-3) Qty: 0 0RF ferrous sulfate 325 mg (65 mg iron) tablet 325 mg PO BID 30 Days Qty: 60 0RF Continued PNV Tabs 20-1 20 mg iron- 1 mg tablet 1 tab PO DAILY Referrals / Follow Up: Care Physician,Miya Primary [Primary Care Provider] - Disposition Disposition (needs filled in before D/C Order can be placed): Home, Self Care
[2023-08-25 08:18] VITALS: BP 112/62; PULSE 88; PULSE 90; RESP 16; TEMP 36.9; O2SAT 98; O2SAT 99
--- NOTE | 2023-08-25 14:10 | CASEMGMT ---
Labor and Delivery Social Work 0900: Sw contacted [facility] to check on status of referral made by this social worker delinquency prevention on 08/24/23. Sw spoke to hotline worker who reported that referral was screened in and asked if there are any additional concerns. - Sw informed hotline screener that ongoing feeding issues continue to arise with MOB and continuing to not feed baby at consistent time. Sw stated that MOB has gone as long as 6 hours in between feeds, and as a result baby is over eating and then having large spits. - Sw stated that MOB and baby are ready for discharge on this date, however sw and other medical staff do not feel comfortable discharging MOB and baby until worker from [facility] meets with MOB at bedside. - Sw stated that sw is concerned that MOB is unable to care for baby at baseline, and that does not even take into consideration all of the concerns with the current housing issues ( lots of people residing in the home, lack of food, potential substance use, bed bugs, uncleanliness, etc.) - Hotline screener stated that someone from the agency would contact this sw'er. 1200: Sw has not heard back from [facility] yet. Sw called back into the hotline for update on referral. Hotline screener stated that referral has been screened in and assigned to worker, Jessi Lindsey. Hotline screener stated that Jessi should be reporting to L&D any minute. 1210: Jessi Lindsey assigned final assembly worker from [facility] presented to Labor and Delivery unit to meet with MOB prior to discharge. Sw provided Ms. Lindsey with updated information regarding ongoing concerns with feeds. Sw also informed Ms. Lindsey that baby was found in crib with wash cloth over her face when MOB got up to go to the bathroom, and nurse saw baby and took wash cloth off of her face. - Sw stated that MOB continues to have long lengths of time in between feeds, even though she has been re-educated multiple times and multiple ways regarding this issue and the importance of baby eating every three hours consistently. - Ms. Lindsey met with parents at bedside. - Following conversation with parents, Ms. Lindsey met with bedside RN who reviewed nursing notes with specific feeding concerns. Ms. Lindsey stated that at this time it is ok for baby to be discharged with MOB. Paternal grandpa will be coming to get parents and baby when discharge is ready, and then she will be following up with family at their home at 4:00 this afternoon to check into housing concerns and ensure that parents have everything that they need for baby. Per [facility], it is ok for baby to be discharged with MOB when medically ready, and they will be meeting with them at 4:00 today. Bedside RN and Videogame Designer informed of this information. Eduard Toribio, TECHNOLOGY DIRECTOR, DAIRY EQUIPMENT MECHANIC
[2023-08-25 14:59] VITALS: O2SAT 99
[2023-08-25 15:00] VITALS: BP 130/65; PULSE 74; RESP 16; TEMP 36.4; O2SAT 98
== END 2023-08-25 15:35 | disposition home or self-care (01) | DRG 560 ==
PROVIDERS: Admitting Provider Obstetrics & Gynecology; Visit Provider Obstetrics & Gynecology
DX: O26.893 Other specified pregnancy related conditions, third trimester (principal); Z37.0 Single live birth; D62 Acute posthemorrhagic anemia; F19.90 Other psychoactive substance use, unspecified, uncomplicated; F17.200 Nicotine dependence, unspecified, uncomplicated; F41.9 Anxiety disorder, unspecified; O99.324 Drug use complicating childbirth; Z67.11 Type A blood, Rh negative; O99.344 Other mental disorders complicating childbirth; O99.334 Smoking (tobacco) complicating childbirth; F11.91 Opioid use, unspecified, in remission; O90.81 Anemia of the puerperium; Z3A.37 37 weeks gestation of pregnancy; Z59.7 Insufficient social insurance and welfare support; Z59.86 Financial insecurity; Z59.89 Other problems related to housing and economic circumstances; Z59.19 Other inadequate housing; Z59.48 Other specified lack of adequate food; Z63.4 Disappearance and death of family member; Z62.810 Personal history of physical and sexual abuse in childhood; Z87.59 Personal history of other complications of pregnancy, childbirth and the puerperium; Z84.82 Family history of sudden infant death syndrome
CPT/HCPCS: 59025; 59050; 80307; 85025; 85461; 86780; 86850; 86870; 86900; 86901; 90384; 99221; J7120; G0378; J2790; J2791

== ENCOUNTER 2023-09-16 01:43 | Emergency (ER) | payer MEDICAID, SELFPAY ==
[2023-09-16 01:45] VITALS: BP 104/69; PULSE 75; RESP 20; TEMP 37.1; O2SAT 98; BMI 26.4
--- NOTE | 2023-09-16 02:01 | RAD_ITS ---
EXAM: XR CHEST, 1 VIEW CLINICAL INDICATION: COUGH, VOMITING TECHNIQUE: Frontal view of the chest. COMPARISON: 06/12/2023 chest x-ray FINDINGS: LUNGS AND PLEURAL SPACES: Unremarkable. No consolidation or edema. No pneumothorax. No effusion. Question calcified granuloma at the central aspect of the left lower lung. HEART: Unremarkable. Cardiac silhouette not enlarged. MEDIASTINUM: Central airways and mediastinal contour are unremarkable. BONES/JOINTS: Unremarkable. No acute fracture. SOFT TISSUES: Unremarkable. RAD/Chest 1 View (Portable) IMPRESSION: No radiographic evidence of acute cardiopulmonary disease. Electronically Signed: Johan Gooden MD at 2:27 EST ,
--- NOTE | 2023-09-16 02:01 | EX.ED.DYSGE1 ---
HPI History of Present Illness Chief Complaint: Nausea/Vomiting Informant: patient and EMS Narrative Narrative: 27-year-old female presenting by EMS for nausea/vomiting for less than an hour. She states at about 1 AM she had several minutes worth of abdominal pain like a band across her upper abdomen, followed by vomiting. She states her significant other called EMS because better safe than sorry. They gave her IV fluids and Zofran she is feeling better now. She denies having any abdominal pain. She has had a cough for 2 or 3 weeks that has been lingering it is nonproductive and she denies dyspnea or fevers/chills. Patient just gave to a baby that immediately went into care of CPS and she has a court hearing coming up for custody. [facility] Medical History Autism Home Medications NK 09/16/23 [History Last Taken Unknown] Allergy/AdvReac Type Severity Reaction Status Date / Time No Known Allergies Allergy Verified 09/16/23 01:49 Social History Smoking Status: Heavy Smoker (>10/day) ROS ROS ED Constitutional Constitutional ED: Denies chills or fever(s) Eyes Eyes: Denies change in vision or diplopia ENT ENT ED: Denies rhinorrhea or sore throat Cardiovascular Cardiovascular: Denies chest pain or palpitations Respiratory/Chest Respiratory/Chest: Reports cough; Denies dyspnea Gastrointestinal Gastrointestinal: Reports abdominal pain, nausea and vomiting; Denies diarrhea Genitourinary Genitourinary ED: Denies dysuria or hematuria Musculoskeletal Musculoskeletal: Denies back pain or neck pain Integumentary Denies abscess or rash Neurologic Neurologic: Denies headache(s), paresthesias or weakness Psychiatric Psychiatric: Denies suicidal ideation or suicidal thoughts EXAM Physical Exam Const Vital Signs: 09/16/23 01:45 09/16/23 02:04 Temperature 98.7 F Temperature Source Oral Pulse Rate 75 Respiratory Rate 20 H Respiratory Effort Normal Respiratory Depth Normal Respiratory Pattern Normal Blood Pressure 104/69 Blood Pressure Mean 80 Pulse Ox 98 Oxygen Delivery Method Room Air Room Air Positive well nourished and well developed General Appearance ED: well developed and NAD HEENT Reports moist mucous membranes normocephalic and atraumatic Eyes PERRL and EOMs intact bilaterally Neck full ROM and supple Resp normal respiratory effort and clear to auscultation bilaterally Cardio regular rate, regular rhythm and no murmurs Rate: Negative for tachycardic GI non-tender and non-distended Auscultation: normoactive bowel sounds Palpation: soft Back/Spine no CVA tenderness General Back: other FROM Extremity normal to inspection General Extremety ED: Negative for edema, pulses abnormal or tenderness General Extremity: Negative for edema or pulses abnormal Neuro oriented x3, CN's II-XII intact bilaterally and no sensory deficits noted Sensorium / Orientation: awake and alert Motor Exam: strength 5/5 throughout Skin no rashes or lesions noted and no wounds MDM MDM MDM Narrative Medical decision making narrative: At the time of evaluation patient has an IV, already had Zofran, and almost half of a liter of IV fluids and appears well, feeling better, with normal vital signs, and a benign abdomen. Differential here includes a basilar pneumonia causing her lingering cough, biliary colic, dyspepsia, GERD with vomiting, GI hemorrhage, viral gastritis. I started by doing a 1 view stat portable chest x-ray which is normal in my interpretation, and a bedside ultrasound since the patient is here around 2 AM and ultrasound from radiology is not available. She has a contracted gallbladder with shadowing stones present. No pericholecystic fluid noted, no sonographic Zamarripa's, difficult to evaluate for gallbladder wall thickening since it appears contracted. She states she ate dinner 6 or 8 hours ago, spicy chicken sandwiches with cheese. She is feeling well. I then obtained some labs to evaluate for choledocholithiasis/biliary obstruction, pancreatitis, acute cholecystitis. I reviewed these, they are essentially unremarkable and she is still feeling well on reevaluation. She will be given appropriate instructions with regards to diet and reasons to return for recurrent symptoms, and follow-up with surgery. Lab Data Attestation: I reviewed the patient's lab results. Labs: Laboratory Results - last 24 hr 09/16/23 02:26 WBC 10.7 RBC 3.79 L Hgb 11.8 L Hct 36.0 L MCV 95.0 MCH 31.1 MCHC 32.8 RDW Std Deviation 42.7 RDW Coeff of Melina 12.3 Plt Count 394 MPV 9.5 Immature Gran % (Auto) 1.100 H Neut % (Auto) 47.1 Lymph % (Auto) 39.1 [place] % (Auto) 6.9 Eos % (Auto) 4.9 Baso % (Auto) 0.9 Absolute Neuts (auto) 5.0 Absolute Lymphs (auto) 4.17 Nucleated RBC % 0 Sodium 142 Potassium 4.0 Chloride 111 H Carbon Dioxide 25.0 Anion Gap 6 BUN 19 H Creatinine 0.82 Estim Creat Clear Calc 99.82 Est GFR (MDRD) Af Amer 107 Est GFR (MDRD) Non-Af 89 BUN/Creatinine Ratio 23.1 H Glucose 94 Calcium 8.6 Total Bilirubin 0.20 AST 18 ALT 20 Alkaline Phosphatase 85 Total Protein 6.3 L Albumin 2.9 L Globulin 3.4 Albumin/Globulin Ratio 0.9 Lipase 47 Discharge Plan Triage Chief Complaint: Nausea/Vomiting ED Provider: Eduar Galdamez Dx/Rx/DC Orders Clinical Impression: Viral URI, Cholelithiasis, Biliary colic Instructions: ED Gallstones with Biliary Colic Prescriptions: No Action NK Primary Care Provider: Care Physician,No Primary Referrals: Elmer Ruiz MD [Med Staff - Active Staff] - As soon as possible Disposition Disposition: Home, Self Care
[2023-09-16 02:04] VITALS: O2SAT 99
[2023-09-16 02:34] LABS: Absolute Lymphocyte Count 4.17 X10^3/uL (0.83-4.51); Basophil% 0.9 % (0-1); Eosinophil# 0.52 X10^3/uL; Eosinophils% 4.9 % (0-5); Hemoglobin 11.8 g/dL (12.0-15.0); Lymphocyte # 4.17 X10^3/ul (0.83-4.51); Lymphocyte % 39.1 % (19-41); Mean Corp Hgb Conc 32.8 g/dL (32-36); Mean Corpuscular Hgb 31.1 pg (27.0-32.0); Mean Platelet Vol. 9.5 fl (6.2-12.0); Monocyte# 0.74 X10^3/uL; Monocyte% 6.9 % (0-10); NRBC Flagged by Analyzer 0 % (0-5); Neutrophil # 5.01 X10^3/uL (2.7-7.7); Neutrophil % 47.1 % (47-70); POSITIVE MORPHOLOGY YES; Platelet Count 394 K/mm3 (150-450); RBC Distribution Width CV 12.3 % (11.6-14.6); RBC Distribution Width SD 42.7 fl (35.1-43.9); Red Blood Count 3.79 M/mm3 (4.2-5.4); White Blood Count 10.7 K/mm3 (4.4-11.0)
[2023-09-16 02:36] LABS: Differential Indicated SCAN CRITERIA MET
[2023-09-16 02:53] LABS: ALB/GLOB Ratio 0.9 RATIO (0.9-2.4); AST(SGOT) 18 U/L (15-37); Alanine Aminotransfer ALT/SGPT 20 U/L (13-56); Albumin, Serum 2.9 g/dL (3.2-5.0); Alkaline Phosphatase 85 U/L (45-117); Anion Gap 6 (5-15); BUN 19 mg/dL (7-18); BUN/Creat Ratio 23.1 RATIO (10-20); Calcium,Total 8.6 mg/dL (8.5-10.1); Chloride 111 mmol/L (98-107); Creatinine, Serum 0.82 mg/dL (0.55-1.02); EST Glomerular Filtration Rate 89 mL/min (>60); Est Glom Filt Rate - Afr Amer 107 mL/min (>60); Estimated Creatinine Clearance 99.82 ml/min; Globulin 3.4 g/dL (2.2-4.2); Glucose 94 mg/dL (74-106); Lipase 47 U/L (13-75); Protein, Total 6.3 g/dL (6.4-8.2); Sodium Level 142 mmol/L (136-145)
[2023-09-16 03:06] VITALS: BP 112/59; PULSE 62; RESP 12; TEMP 36.3; O2SAT 100
== END 2023-09-16 03:10 | disposition home or self-care (01) ==
PROVIDERS: Emergency Provider Emergency Medicine; Visit Provider Emergency Medicine
DX: J06.9 Acute upper respiratory infection, unspecified (principal); K80.70 Calculus of gallbladder and bile duct without cholecystitis without obstruction; F17.200 Nicotine dependence, unspecified, uncomplicated
CPT/HCPCS: 71045; 80053; 83690; 85025; 99284; A4216

== ENCOUNTER 2023-09-23 22:09 | Inpatient (IN) | payer MEDICAID, SELFPAY ==
[2023-09-23 22:12] VITALS: BP 133/81; PULSE 64; RESP 16; TEMP 36.7; O2SAT 100; BMI 28.8
--- NOTE | 2023-09-23 22:23 | US_ITS ---
EXAM: US Abdomen RUQ (limited) HISTORY: PAIN, n/v TECHNIQUE: Right upper quadrant. COMPARISON: None. LIMITATIONS: None. FINDINGS: LIVER: 19.2 cm length. Unremarkable. GALLBLADDER Size: Distended. Stones: Multiple small stones. Wall thickness: Not thickened. 3 mm. Pericholecystic fluid: None. Sonographic Zamarripa sign: Negative. EXTRAHEPATIC BILE DUCTS: Common bile duct 10 mm is dilated. PANCREAS: Unremarkable. RIGHT KIDNEY: No hydronephrosis. ASCITES: None. US/Gallbladder IMPRESSION: Cholelithiasis. No evidence of acute cholecystitis. Dilated common bile duct. Choledocholithiasis not excluded. Electronically Signed: [place] Mohamud MD at 23:40 EST ,
--- NOTE | 2023-09-23 22:24 | EDS_ITS ---
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 She states that is the same symptoms, pain in a bandlike fashion upper abdomen in addition to nausea/vomiting. No fevers, no urinary symptoms. No diarrhea but red blood per rectum or hematemesis. PFSH PFS Medical History Asthma Autism Home Medications NK 09/16/23 [History Last Taken Unknown] Allergy/AdvReac Type Severity Reaction Status Date / Time No Known Allergies Allergy Verified 09/23/23 22:12 Social History Smoking Status: Heavy Smoker (>10/day) ROS ROS ED Constitutional Constitutional ED: Denies chills or fever(s) Eyes Eyes: Denies change in vision or diplopia ENT ENT ED: Denies rhinorrhea or sore throat Cardiovascular Cardiovascular: Denies chest pain or palpitations Respiratory/Chest Respiratory/Chest: Denies cough or dyspnea Gastrointestinal Gastrointestinal: Reports abdominal pain, nausea and vomiting; Denies diarrhea Genitourinary Genitourinary ED: Denies dysuria or hematuria Musculoskeletal Musculoskeletal: Denies back pain or neck pain Integumentary Denies abscess or rash Neurologic Neurologic: Denies headache(s), paresthesias or weakness Psychiatric Psychiatric: Reports anxiety; Denies suicidal thoughts EXAM Physical Exam Const Vital Signs: 09/23/23 22:12 09/23/23 23:37 09/23/23 23:38 Temperature 98.1 F 97.9 F 97.6 F L Temperature Source Oral Temporal Pulse Rate 64 72 72 Respiratory Rate 16 17 16 Blood Pressure 133/81 H 109/65 118/74 Blood Pressure Mean 98 79 88 Pulse Ox 100 98 98 Oxygen Delivery Method Room Air Room Air Positive well nourished and well developed General Appearance ED: well developed and NAD HEENT Reports moist mucous membranes normocephalic and atraumatic Eyes PERRL and EOMs intact bilaterally Neck full ROM and supple Resp normal respiratory effort and clear to auscultation bilaterally Cardio regular rate, regular rhythm and no murmurs GI non-distended GI Narrative: Tender throughout upper abdomen, positive Zamarripa's no other areas of guarding or rebound. No distention. Auscultation: normoactive bowel sounds Palpation: soft Back/Spine no CVA tenderness General Back: other FROM Extremity normal to inspection General Extremety ED: Negative for edema, pulses abnormal or tenderness General Extremity: Negative for edema or pulses abnormal Neuro oriented x3, CN's II-XII intact bilaterally and no sensory deficits noted Sensorium / Orientation: awake and alert Motor Exam: strength 5/5 throughout Skin no rashes or lesions noted and no wounds MDM MDM MDM Narrative Medical decision making narrative: Concern for early acute cholecystitis here. Labs are consistent with this, showing elevated liver enzymes and leukocytosis, all of which is new compared with her prior visit. Before, we did a bedside ultrasound showing gallstones, but she presented before ultrasound left for the evening and so we were able to get an official ultrasound, which confirms presence of gallstones but a negative sonographic Zamarripa and no other radiographic signs of acute cholecystitis. It does show a prominent CBD; her bilirubin is within normal limits, arguing against choledocholithiasis but that is not able to be ruled out solely based on these results. After Zofran and morphine and Toradol she is feeling much better, she is clinically and hemodynamically stable, and these medications were given prior to the ultrasound. My concern with her labs and symptoms, however, is that she has early acute cholecystitis. Started on antibiotics with Zosymoisés discussed with surgery plan for admission. History & Record Review Additional record(s) reviewed:: Prior ED visit and Prior labs Lab Data Attestation: I reviewed the patient's lab results. Labs: Laboratory Results - last 24 hr 09/23/23 22:38 WBC 16.0 H RBC 4.55 Hgb 13.9 Hct 41.4 MCV 91.0 MCH 30.5 MCHC 33.6 RDW Std Deviation 40.6 RDW Coeff of Melina 12.2 Plt Count 397 MPV 9.4 Immature Gran % (Auto) 0.500 Neut % (Auto) 79.0 H Lymph % (Auto) 13.7 L Reynolds % (Auto) 4.3 Eos % (Auto) 2.1 Baso % (Auto) 0.4 Absolute Neuts (auto) 12.6 H Absolute Lymphs (auto) 2.18 Nucleated RBC % 0 Sodium 142 Potassium 3.9 Chloride 107 Carbon Dioxide 27.0 Anion Gap 8 BUN 9 Creatinine 0.91 Estim Creat Clear Calc 90.22 Est GFR (MDRD) Af Amer 96 Est GFR (MDRD) Non-Af 79 BUN/Creatinine Ratio 9.9 L Glucose 109 H Calcium 9.9 Total Bilirubin 0.70 AST 138 H ALT 85 H Alkaline Phosphatase 161 H Total Protein 7.4 Albumin 3.5 Globulin 3.9 Albumin/Globulin Ratio 0.9 Lipase 53 Serum , Qual NEGATIVE Radiography Diagnostic Testing: Clinical Impression(s) from Imaging Studies Gallbladder Ultrasound 09/23/23 22:23 IMPRESSION: Cholelithiasis. No evidence of acute cholecystitis. Dilated common bile duct. Choledocholithiasis not excluded. Electronically Signed: [place] Mohamud MD at 23:40 EST , Rhythm Strip Rhythm Strip: Sinus Rhythm Rate: 56 Ectopy: None EKG Initial EKG: Attestation: I personally reviewed and interpreted this EKG as follows: Interpretation: Sinus Rhythm and No Acute Injury Pattern Comments: nml EKG Management Discussion w/another healthcare provider: Society Editor (Surgery Dr. Ruiz) Discharge Plan Dx/Rx/DC Orders Clinical Impression: Acute calculous cholecystitis Disposition Disposition: Acute Care [facility]
[2023-09-23] MEDS: Ketorolac 15 MG/ML Vial IV (22:44)
[2023-09-23] MEDS: Ondansetron 4 MG/2 ML Vial IV (22:44)
[2023-09-23] MEDS: Morphine 4 MG/ML Syringe IV (22:44)
[2023-09-23 22:45] LABS: Absolute Lymphocyte Count 2.18 X10^3/uL (0.83-4.51); Absolute Neutrophil Count 12.6 X10^3/uL (2.0-7.7); Basophil# 0.07 X10^3/uL; Basophil% 0.4 % (0-1); Eosinophil# 0.34 X10^3/uL; Eosinophils% 2.1 % (0-5); Hematocrit 41.4 % (37-47); Hemoglobin 13.9 g/dL (12.0-15.0); Lymphocyte # 2.18 X10^3/ul (0.83-4.51); Lymphocyte % 13.7 % (19-41); Mean Corp Hgb Conc 33.6 g/dL (32-36); Mean Corpuscular Hgb 30.5 pg (27.0-32.0); Mean Platelet Vol. 9.4 fl (6.2-12.0); Monocyte# 0.69 X10^3/uL; Monocyte% 4.3 % (0-10); NRBC Flagged by Analyzer 0 % (0-5); Neutrophil # 12.61 X10^3/uL (2.7-7.7); Platelet Count 397 K/mm3 (150-450); RBC Distribution Width CV 12.2 % (11.6-14.6); RBC Distribution Width SD 40.6 fl (35.1-43.9); Red Blood Count 4.55 M/mm3 (4.2-5.4)
[2023-09-23] MEDS: 0.9% Normal Saline (1000mL) 1,000 ML 1000 ML IV (22:45)
[2023-09-23 23:01] LABS: ALB/GLOB Ratio 0.9 RATIO (0.9-2.4); AST(SGOT) 138 U/L (15-37); Alanine Aminotransfer ALT/SGPT 85 U/L (13-56); Albumin, Serum 3.5 g/dL (3.2-5.0); Alkaline Phosphatase 161 U/L (45-117); Anion Gap 8 (5-15); BUN 9 mg/dL (7-18); BUN/Creat Ratio 9.9 RATIO (10-20); Calcium,Total 9.9 mg/dL (8.5-10.1); Chloride 107 mmol/L (98-107); Creatinine, Serum 0.91 mg/dL (0.55-1.02); EST Glomerular Filtration Rate 79 mL/min (>60); Est Glom Filt Rate - Afr Amer 96 mL/min (>60); Estimated Creatinine Clearance 90.22 ml/min; Globulin 3.9 g/dL (2.2-4.2); Glucose 109 mg/dL (74-106); Lipase 53 U/L (13-75); Potassium 3.9 mmol/L (3.5-5.1); Protein, Total 7.4 g/dL (6.4-8.2); Sodium Level 142 mmol/L (136-145)
[2023-09-23 23:07] LABS: Internal QC Validated? YES +Cl - CLEAR BKGD; Pregnancy, Serum, hCG Quali. NEGATIVE Negative
[2023-09-23 23:37] VITALS: BP 109/65; PULSE 72; RESP 17; TEMP 36.6; O2SAT 98
[2023-09-23 23:38] VITALS: BP 118/74; PULSE 72; RESP 16; TEMP 36.4; O2SAT 98
[2023-09-23] MEDS: Piperacil/Tazobactam 3.375 GM in 0.9% Normal Saline (50mL MB+) 50 ML IV (23:47)
--- NOTE | 2023-09-23 23:55 | EKG12_ITS ---
Test Reason : DYSRHYTHMIA Blood Pressure : / mmHG Vent. Rate : 056 BPM Atrial Rate : 056 BPM P-R Int : 160 ms QRS Dur : 078 ms QT Int : 428 ms P-R-T Axes : 027 127 061 degrees QTc Int : 413 ms Sinus bradycardia Right axis deviation Abnormal ECG Confirmed by Velasquez Pina ([id number]), international editorial producer MARILEE KAMARA ([id number]) on 09/28/2023 2:03:57 PM Referred By: Confirmed By:Velasquez Pina
[2023-09-24] VITALS (17 sets, daily range): BP systolic 99–160; BP diastolic 54–106; PULSE 48–81; RESP 15–18; TEMP 36.2–37.3; O2SAT 94–100; BMI 28.7
[2023-09-24] MEDS: 0.9% Normal Saline (1000mL) 1,000 ML 125 ML IV ×2 (01:45→16:08)
[2023-09-24] MEDS: Piperacil/Tazobactam 3.375 GM in 0.9% Normal Saline (50mL MB+) 50 ML IV ×3 (06:14→19:54)
[2023-09-24 06:35] LABS: Absolute Lymphocyte Count 2.22 X10^3/uL (0.83-4.51); Absolute Neutrophil Count 7.9 X10^3/uL (2.0-7.7); Basophil# 0.03 X10^3/uL; Basophil% 0.3 % (0-1); Eosinophil# 0.29 X10^3/uL; Eosinophils% 2.6 % (0-5); Hematocrit 35.4 % (37-47); Hemoglobin 11.9 g/dL (12.0-15.0); Lymphocyte # 2.22 X10^3/ul (0.83-4.51); Mean Corp Hgb Conc 33.6 g/dL (32-36); Mean Corpuscular Hgb 31.4 pg (27.0-32.0); Mean Corpuscular Volume 93.4 fL (81-99); Mean Platelet Vol. 9.6 fl (6.2-12.0); Monocyte# 0.61 X10^3/uL; Monocyte% 5.5 % (0-10); NRBC Flagged by Analyzer 0 % (0-5); Neutrophil # 7.88 X10^3/uL (2.7-7.7); Neutrophil % 71.1 % (47-70); Platelet Count 349 K/mm3 (150-450); RBC Distribution Width CV 12.2 % (11.6-14.6); Red Blood Count 3.79 M/mm3 (4.2-5.4); White Blood Count 11.1 K/mm3 (4.4-11.0)
--- NOTE | 2023-09-24 07:13 | RAD_ITS ---
HISTORY: LAP JOHNIE WITH [facility] COMPARISON: Gallbladder ultrasound September 23, 2023 TECHNIQUE: A total of 94 fluoroscopic images were saved without a radiologist present. FINDINGS: Total fluoroscopy time: 13.9 seconds Cumulative air kerma: 3.80 mGy RAD/Cholangiogram/ O R,Initial IMPRESSION: Fluoroscopic assistance for intraoperative cholangiogram. Please see operative report for additional information. Electronically Signed: Nico Bull MD at 8:21 EST ,
[2023-09-24 07:14] LABS: ALB/GLOB Ratio 0.9 RATIO (0.9-2.4); AST(SGOT) 96 U/L (15-37); Alanine Aminotransfer ALT/SGPT 95 U/L (13-56); Albumin, Serum 2.9 g/dL (3.2-5.0); Alkaline Phosphatase 143 U/L (45-117); Anion Gap 10 (5-15); BUN 9 mg/dL (7-18); BUN/Creat Ratio 9.9 RATIO (10-20); Calcium,Total 8.7 mg/dL (8.5-10.1); Chloride 110 mmol/L (98-107); Creatinine, Serum 0.91 mg/dL (0.55-1.02); EST Glomerular Filtration Rate 79 mL/min (>60); Est Glom Filt Rate - Afr Amer 96 mL/min (>60); Estimated Creatinine Clearance 89.98 ml/min; Globulin 3.2 g/dL (2.2-4.2); Glucose 89 mg/dL (74-106); Potassium 4.3 mmol/L (3.5-5.1); Protein, Total 6.1 g/dL (6.4-8.2); Sodium Level 145 mmol/L (136-145)
--- NOTE | 2023-09-24 09:26 | HP.PCM.SX_ITS ---
HPI - General General Date of Admission: 09/23/23 HPI Narrative KATHIA LERMA, is a 27 F who presents with abdominal pain. The patient was in the emergency room last week and was found to have cholelithiasis. She never followed up. She comes back today saying that she was doing fine over the last week and then all of a sudden yesterday morning she started having severe pain in the epigastric region. She also says she was having nausea and vomiting yesterday. She denies fevers or chills. [facility] Medical History Asthma Autism Home Medications NK 09/16/23 [History Last Taken Unknown] Allergy/AdvReac Type Severity Reaction Status Date / Time No Known Allergies Allergy Verified 09/23/23 22:12 Social History Smoking Status: Heavy Smoker (>10/day) Vital Signs Vital Signs Vital Signs: 09/23/23 22:12 09/23/23 23:37 09/23/23 23:38 Temperature 98.1 F 97.9 F 97.6 F L Temperature Source Oral Temporal Pulse Rate 64 72 72 Respiratory Rate 16 17 16 Respiratory Effort Respiratory Depth Blood Pressure 133/81 H 109/65 118/74 Blood Pressure Mean 98 79 88 Blood Pressure Source Blood Pressure Position Blood Pressure Location Pulse Ox 100 98 98 Oxygen Delivery Method Room Air Room Air 09/24/23 00:09 09/24/23 00:57 09/24/23 00:34 Temperature 98.4 F Temperature Source Oral Pulse Rate 58 L 51 L Respiratory Rate 18 17 15 Respiratory Effort Normal Non-Labored Respiratory Depth Normal Blood Pressure 132/89 H 128/75 H Blood Pressure Mean 103 92 Blood Pressure Source Monitor Blood Pressure Position Semi-Fowlers Blood Pressure Location Right Arm Pulse Ox 99 100 100 Oxygen Delivery Method Room Air Room Air Room Air 09/24/23 06:00 09/24/23 07:49 Temperature 98.2 F Temperature Source Oral Pulse Rate 60 Respiratory Rate 15 Respiratory Effort Normal Non-Labored Respiratory Depth Blood Pressure 104/54 L Blood Pressure Mean 70 Blood Pressure Source Monitor Blood Pressure Position Semi-Fowlers Blood Pressure Location Right Arm Pulse Ox 97 100 Oxygen Delivery Method Room Air Room Air Weight Weight: 162 lb 0.636 oz Body Mass Index (BMI) 28.7 Physical Exam Const oriented x3 and no apparent distress Resp normal respiratory effort GI soft to palpation Palpation: tender epigastric Results Lab / Micro Data 09/24/23 05:49 09/24/23 05:49 Labs: Laboratory Results - last 24 hr 09/23/23 22:38: WBC 16.0 H, RBC 4.55, Hgb 13.9, Hct 41.4, MCV 91.0, MCH 30.5, MCHC 33.6, RDW Std Deviation 40.6, RDW Coeff of Melina 12.2, Plt Count 397, MPV 9.4, Immature Gran % (Auto) 0.500, Neut % (Auto) 79.0 H, Lymph % (Auto) 13.7 L, [place] % (Auto) 4.3, Eos % (Auto) 2.1, Baso % (Auto) 0.4, Absolute Neuts (auto) 12.6 H, Absolute Lymphs (auto) 2.18, Nucleated RBC % 0, Sodium 142, Potassium 3.9, Chloride 107, Carbon Dioxide 27.0, Anion Gap 8, BUN 9, Creatinine 0.91, Estim Creat Clear Calc 90.22, Est GFR (MDRD) Af Amer 96, Est GFR (MDRD) Non-Af 7 9, BUN/Creatinine Ratio 9.9 L, Glucose 109 H, Calcium 9.9, Total Bilirubin 0.70, AST 138 H, ALT 85 H, Alkaline Phosphatase 161 H, Total Protein 7.4, Albumin 3.5, Globulin 3.9, Albumin/Globulin Ratio 0.9, Lipase 53, Serum , Qual NEGATIVE 09/24/23 05:49: WBC 11.1 H, RBC 3.79 L, Hgb 11.9 L, Hct 35.4 L, MCV 93.4, MCH 31.4, MCHC 33.6, RDW Std Deviation 42.0, RDW Coeff of Melina 12.2, Plt Count 349, MPV 9.6, Immature Gran % (Auto) 0.500, Neut % (Auto) 71.1 H, Lymph % (Auto) 20.0, [place] % (Auto) 5.5, Eos % (Auto) 2.6, Baso % (Auto) 0.3, Absolute Neuts (auto) 7.9 H, Absolute Lymphs (auto) 2.22, Nucleated RBC % 0, Sodium 145, Potassium 4.3, Chloride 110 H, Carbon Dioxide 25.0, Anion Gap 10, BUN 9, Creatinine 0.91, Estim Creat Clear Calc 89.98, Est GFR (MDRD) Af Amer 96, Est GFR (MDRD) Non-Af 79, BUN/Creatinine Ratio 9.9 L, Glucose 89, Calcium 8.7, Total Bilirubin 0.70, AST 96 H, ALT 95 H, Alkaline Phosphatase 143 H, Total Protein 6.1 L, Albumin 2.9 L, Globulin 3.2, Albumin/Globulin Ratio 0.9 Rhythm Strip Rhythm Strip: Sinus Rhythm Rate: 56 Ectopy: None Imaging Radiology Impression Gallbladder Ultrasound 09/23/23 22:23 IMPRESSION: Cholelithiasis. No evidence of acute cholecystitis. Dilated common bile duct. Choledocholithiasis not excluded. Electronically Signed: [place] Mohamud MD at 23:40 EST , Assessment & Plan Assessment/Plan (1) Acute calculous cholecystitis: PLAN: The patient seems to have acute cholecystitis with possible biliary obstruction. Her LFTs are mildly elevated. Her common bile duct was also mildly dilated. The patient's LFTs decreased slightly this morning. Her white count also decreased today. The patient was very comfortable when I went to see her but when I did palpate her abdomen she is still having epigastric tenderness to palpation. Her ultrasound revealed gallstones and a distended gallbladder with mildly dilated common duct. I believe the patient likely has biliary obstruction or partial obstruction. I would like to take the patient for laparoscopic cholecystectomy this afternoon with cholangiograms. I explained that cholangiograms would be able to tell us if there is anything in duct and she may need further ERCP. Patient understands. I discussed laparoscopic cholecystectomy in detail with the patient. I discussed the procedure in detail with the patient. I discussed the risks, benefits, and alternatives of the procedure. I discussed the risks including but not limited to bleeding, infection, injury to surrounding organs such as the liver, bile duct, bowels. I did discuss the possibility of having to convert to an open procedure as well as the possibility that if any injuries occurred this may necessitate further surgery at a tertiary care center. Elmer Ruiz MD Pager: [facility] [address] [place] [address], [address] [place] [address] Office:
--- NOTE | 2023-09-24 09:35 | GALL_PTH ---
PATHOLOGY RESULTS PATIENT: KATHIA LERMA LOC: MS3 U#:[id number] AGE/SX: 27/F ROOM: MS311 RE09/23/[address]: Dr. Elmer Ruiz MD : 1995 BED: 1 DIS: 09/25/2023 SPEC #: [id number] RECD: 09/24/23 15:42 STATUS: JAXSON MALLIKA #: [id number] FERCHO: 09/24/23 09:[address]: Elmer Ruiz DEPT: SURGICAL PATHOLOGY RECD BY: Jessie Manning ENTERED: 09/25/23 08:06 SP TYPE: YAA OSBORNE DR: No Primary Care Phys Tissues: Gallbladder, NOS Procedures: Surgery Specimen Level III HEADER OPERATION: Laparoscopic cholecystectomy with IOC PRE-OP DIAGNOSIS: Acute calculus cholecystitis, choledocholithiasis TISSUE SUBMITTED: Gallbladder MICROSCOPIC DIAGNOSIS Gallbladder, cholecystectomy: Cholesterolosis, chronic cholecystitis and cholelithiasis. Benign pericystic lymph node. AM:amarilys 09/28/2023 MICROSCOPIC DESCRIPTION Slides are reviewed. GROSS DESCRIPTION Received is one container labeled with the patient's name and designated gallbladder. The specimen consists of a gallbladder measuring 10.5 cm in length and up to 4.5 cm in diameter. The external surface is pink-wright, smooth and glistening for the most part. Focally it is granular, hemorrhagic and contains cautery artifact. The gallbladder contains green-yellow mucoid bile and multiple mulberry yellow stones measuring in aggregate 1.5 x 1.4 x 0.3 cm and 0.2 to 0.4 cm in greatest dimension. The mucosa also shows several yellowish streaks consistent with cholesterolosis. The mucosa is bile-stained and without any mass lesions. The gallbladder wall measures up to 0.2 cm in thickness. Also present close to the cystic duct is an ovoid nodule, a possible lymph node, measuring 1.0 cm in greatest dimension. Behavioral Health Care Manager sections from the gallbladder and the cystic duct including entire possible lymph node are submitted in one cassette. / SJ:amarilys 09/25/2023 TC:3 CPT: 17747
--- NOTE | 2023-09-24 10:24 | CASEMGMT ---
Social Work SW reviewed pt's chart. Pt gave to daughter on 08/23/23. Referral to [facility] made during hospital stay with CPS recommending dc home with baby and CPS follow up. SW met with pt and introduced self and role of SW. SW inquiring about baby. Pt able to state baby was born 1 month and 2 days ago and baby's name is Corrine. Pt stating the baby is currently in the custody of [facility] as someone who lives in her home is deemed unsafe for the baby to be around. Pt is confident she will get the baby back once this person moves out of her home. Phone call placed to [facility]. Pt does have an open case and Jessi Lindsey is pt's case assembler. FRANK spoke with Jessi's supervisor color making Albert who confirms that Baby Corrine in is the custody of CPS and safe. LUIS Hoyt
--- NOTE | 2023-09-24 12:48 | CASEMGMT ---
Discharge Planning A list of?PCP providers including quality and resource use data and consistent with the patient's preferred geographic region, medical needs, and insurance network was created from the patients insurance website.? This list was provided to the RN RABIA. Nichelle Iniguez, Discharge Planning Asst.
[2023-09-24] MEDS: 0.9% Normal Saline (1000mL) 1,000 ML 15 ML IV (13:08)
[2023-09-24] MEDS: Bupivacaine 0.25% 30 ML Vial (14:18)
--- NOTE | 2023-09-24 14:24 | PCM.OPRPT ---
Report of Operation Date of Procedure: 09/24/23 Pre-Operative Diagnosis: Acute cholecystitis Post-Operative Diagnosis: Choledocholithiasis with obstruction Surgery/Procedure Performed:: Laparoscopic cholecystectomy with cholangiograms Description of Surgical Findings:: Obstructing distal common bile duct stone with dilated common duct. Type of Anesthesia: General/Regional Specimen's removed: Gallbladder Estimated Blood Loss (mL): 20 Description of Procedure: After obtaining informed consent patient was brought back to the operating room. General anesthesia was induced. The abdomen was prepped and draped in usual sterile fashion. A small midline incision was made superior to the umbilicus and deepened to the level of fascia. The fascia was elevated and incised. Next the peritoneum was elevated and incised in the same fashion. Finger sweep was performed and the Franco trocar was placed into the abdomen. The balloon was inflated. The abdomen was inflated to 15 mmHg. Next a camera was introduced into the abdomen and the abdomen was inspected. Next under direct visualization three 5-mm ports were placed one subxiphoid and 2 subcostal. Next the gallbladder was elevated and retracted toward the right shoulder. The peritoneum was stripped from the gallbladder. The infundibulum was located and retracted laterally. Next the triangle of Calot was dissected and the cystic duct and cystic artery were identified. Cholangiograms were performed. The Malik clamp was used to clamp across the infundibulum and the catheter needle was inserted into the gallbladder. Under fluoroscopy contrast was instilled into the gallbladder and the common duct, cystic duct as well as proximal hepatic ducts were identified. There appeared to be a stone in the distal common bile duct which was obstructing. There is dilated common bile duct with a meniscus sign in the distal common bile duct and no flow into the duodenum. The clamp was removed as well as the needle and the infundibulum was grasped once more. Three hemolock clips were placed across the cystic duct. The cystic duct was then divided leaving 2 clips on the stump. The cystic artery was clipped and divided in the same fashion. The hook cautery was then used to take the gallbladder off of the gallbladder bed. Hemostasis was obtained. Gallbladder fossa was irrigated and no active bleeding or bile leakage was noted. Next the camera was introduced in the subxiphoid port. An Endopouch bag was placed through the umbilical port and the gallbladder was placed into it. The gallbladder was then removed through the umbilical incision. The camera was then reinserted through the umbilical port. The gallbladder fossa was inspected once more and noted to be hemostatic with no leaking bile. The abdomen was suctioned dry. The 5 mm ports were removed under direct visualization. The umbilical port was then removed and the air was removed from the abdomen. Next using an 0 Vicryl suture the umbilical fascia was closed in a [id number] fashion. The umbilical port site was irrigated local anesthetic was administered to all the incisions. All the incisions were closed with interrupted subcuticular 4-0 Monocryl sutures followed by Steri-Strips and dressings. The patient was awoken and taken to PACU in stable condition. Admit VTE Documentation VTE Mechan Device Prophylaxis: SCD's
--- NOTE | 2023-09-24 14:30 | CASEMGMT ---
RN CM NOTE: RN CM to room to complete initial assessment. Pt out of room @ OR. RN CM to complete assessment at a later time. Joel BSN RN CM
--- NOTE | 2023-09-24 14:40 | DCINST_ITS ---
Discharge Instructions Diet Discharge Diet: Light diet - advance as tolerated Activity Discharge Activity: May Not Drive (for 2-3 days or while taking narcotic pain medications.) and - (Do not drive, work heavy equipment or sign legal documents for 24 hours.) May shower in (days): 1 Lifting Restrictions: 20 lbs for 2 weeks Additional Activity Instructions:: Pain medication may cause nausea. You should typically eat light foods as you take your pain medications. Pain medication may also cause constipation. If this is a problem for you, please discuss with your doctor. Dressing / Incision Call your doctor if your incision/area has: Continuous Slow Oozing, Sudden Increased Bleeding, Increased Pain/ Swelling, Increased Redness and Foul Smelling Discharge Call your doctor if you observe: Fever of 101 or Higher Suture Line Care: Avoid Pulling/Pushing and Avoid Pinching/Bending Remove Dressing in: 2 days Additional Dressing/Incision Instructions:: Leave operative bandaids on for 2 days. When you remove dressing, remove steri strips in 7-10 days Follow Up Care Please Follow Up With: Elmer Ruiz MD When: Please call to schedule 2 week follow up appointment. [phone] Test Results: Test results from this visit will be discussed in further detail at your follow- up appointment, if applicable. Discharge Plan Admission Admit Date/Time: 09/23/23 23:57 Attending Provider: Elmer Ruiz Primary Care Provider: Miya Gonzales Primary Discharge Orders/Prescriptions Prescriptions: New acetaminophen 325 mg Tablet 650 mg PO Q4H PRN PRN (Reason: Pain 1-10 Or Fever) Qty: 0 0RF oxycodone 5 mg Tablet 5 - 10 mg PO Q4H PRN PRN (Reason: Pain Score 4-10/10) 5 Days Qty: 15 0RF Referrals / Follow Up: Rose PhysicianMiya Primary [Primary Care Provider] - Disposition Disposition (needs filled in before D/C Order can be placed): Home, Self Care
--- NOTE | 2023-09-24 14:42 | PN_ITS ---
Progress Note Laparoscopic cholecystectomy went well but she did have a common bile duct stone in the distal bile duct that was obstructing. I am not here tomorrow so I will consult Dr. Underwood for ERCP and stone removal. Elmer Ruiz MD Pager: [facility] [address] [place] [address] [address] [place] [address] Office:
--- NOTE | 2023-09-24 14:42 | PCM.PN.BLA ---
Progress Note Laparoscopic cholecystectomy went well but she did have a common bile duct stone in the distal bile duct that was obstructing. I am not here tomorrow so I will consult Dr. Underwood for ERCP and stone removal. Elmer Ruiz MD Pager: [facility] [address] [place] [address] [address] [place] [address] Office:
[2023-09-24] MEDS: Lorazepam 2 MG/ML WCH Syringe IV (15:14)
--- NOTE | 2023-09-24 16:48 | CON.PCM.GI_ITS ---
HPI Consult Data Date of Consult: 09/24/23 HPI Narrative Reason for Consultation: choledocholithiasis HPI Narrative: KATHIA LERMA, is a 27 F who presented to the ED a week ago for the for abdominal pain. She underwent imaging and it displayed cholecytitis. She underwent a cholecystectomy with IOC. There was gallstones seen in the IOC. I was consulted for an ERCP. She states that is the same symptoms, pain in a bandlike fashion upper abdomen in addition to nausea/vomiting. No fevers, no urinary symptoms. No diarrhea but red blood per rectum or hematemesis. Her LFT's have been rising. [facility] Medical History Asthma Autism Home Medications acetaminophen 325 mg tablet 650 mg (2 x 325 mg) PO Q4H PRN PRN Pain 1-10 Or Fever #0 tabs 09/24/23 [Rx Last Taken Unknown] oxycodone 5 mg tablet 5 - 10 mg (1 - 2 x 5 mg) PO Q4H PRN PRN Pain Score 4-10/10 5 days #15 tabs 09/24/23 [Rx Last Taken Unknown] Allergy/AdvReac Type Severity Reaction Status Date / Time No Known Allergies Allergy Verified 09/23/23 22:12 Social History Smoking Status: Heavy Smoker (>10/day) ROS Constitutional Constitutional: Denies fatigue, fever(s) or malaise Eyes Eyes: Denies change in vision ENT HEENT: Denies dizziness or headache(s) Cardiovascular Cardiovascular: Denies chest pain, dyspnea or lightheadedness Respiratory/Chest Respiratory/Chest: Denies cough or dyspnea Gastrointestinal Gastrointestinal: Denies change in bowel habits Genitourinary Genitourinary: Denies burning urination or genital lesions Integumentary Integumentary: Denies rash Neurologic Neurologic: Denies confusion, dizziness, headache(s), numbness or weakness Physical Exam Const oriented x3 and no apparent distress Resp normal respiratory effort GI soft to palpation Palpation: tender epigastric Lab / Micro Data 09/24/23 05:49 09/24/23 05:49 Labs: Laboratory Results - last 24 hr 09/23/23 22:38: WBC 16.0 H, RBC 4.55, Hgb 13.9, Hct 41.4, MCV 91.0, MCH 30.5, MCHC 33.6, RDW Std Deviation 40.6, RDW Coeff of Melina 12.2, Plt Count 397, MPV 9.4, Immature Gran % (Auto) 0.500, Neut % (Auto) 79.0 H, Lymph % (Auto) 13.7 L, Carroll % (Auto) 4.3, Eos % (Auto) 2.1, Baso % (Auto) 0.4, Absolute Neuts (auto) 12.6 H, Absolute Lymphs (auto) 2.18, Nucleated RBC % 0, Sodium 142, Potassium 3.9, Chloride 107, Carbon Dioxide 27.0, Anion Gap 8, BUN 9, Creatinine 0.91, Estim Creat Clear Calc 90.22, Est GFR (MDRD) Af Amer 96, Est GFR (MDRD) Non-Af 7 9, BUN/Creatinine Ratio 9.9 L, Glucose 109 H, Calcium 9.9, Total Bilirubin 0.70, AST 138 H, ALT 85 H, Alkaline Phosphatase 161 H, Total Protein 7.4, Albumin 3.5, Globulin 3.9, Albumin/Globulin Ratio 0.9, Lipase 53, Serum , Qual NEGATIVE 09/24/23 05:49: WBC 11.1 H, RBC 3.79 L, Hgb 11.9 L, Hct 35.4 L, MCV 93.4, MCH 31.4, MCHC 33.6, RDW Std Deviation 42.0, RDW Coeff of Melina 12.2, Plt Count 349, MPV 9.6, Immature Gran % (Auto) 0.500, Neut % (Auto) 71.1 H, Lymph % (Auto) 20.0, Carroll % (Auto) 5.5, Eos % (Auto) 2.6, Baso % (Auto) 0.3, Absolute Neuts (auto) 7.9 H, Absolute Lymphs (auto) 2.22, Nucleated RBC % 0, Sodium 145, Potassium 4.3, Chloride 110 H, Carbon Dioxide 25.0, Anion Gap 10, BUN 9, Creatinine 0.91, Estim Creat Clear Calc 89.98, Est GFR (MDRD) Af Amer 96, Est GFR (MDRD) Non-Af 79, BUN/Creatinine Ratio 9.9 L, Glucose 89, Calcium 8.7, Total Bilirubin 0.70, AST 96 H, ALT 95 H, Alkaline Phosphatase 143 H, Total Protein 6.1 L, Albumin 2.9 L, Globulin 3.2, Albumin/Globulin Ratio 0.9 Rhythm Strip Rhythm Strip: Sinus Rhythm Rate: 56 Ectopy: None Imaging Radiology Impression Gallbladder Ultrasound 09/23/23 22:23 IMPRESSION: Cholelithiasis. No evidence of acute cholecystitis. Dilated common bile duct. Choledocholithiasis not excluded. Electronically Signed: [place] Mohamud MD at 23:40 EST , Assessment & Plan Assessment/Plan (1) Acute calculous cholecystitis: (2) Choledocholithiasis: PLAN: 27-year-old who comes in with acute cholecystitis and discovered to have choledocholithiasis on intraoperative cholangiogram. She will undergo ERCP tomorrow. She was explained alternatives, risk, benefits including outstanding bleeding, infection, sepsis, perforation, need for emergent urgent . She will have an ASA of 3. Charges/Coding Visit Charges Inpatient E&M: 11053 Init Hosp L3
--- NOTE | 2023-09-24 16:50 | CASEMGMT ---
RODY CAMARILLO note: Pt has returned to room from OR and is resting in bed. RODY CM to room. Pt states she is very painful and would prefer to complete assessment tomorrow. Joel DERASN RODY CM
[2023-09-24] MEDS: oxyCODONE 5 MG Tablet PO (19:53)
[2023-09-24] MEDS: 0.9% Normal Saline (250mL Bag) 250 ML 15 ML IV (19:54)
[2023-09-24] MEDS: Acetaminophen 325 MG Tablet 650 MG PO (19:54)
[2023-09-25] VITALS (9 sets, daily range): BP systolic 107–155; BP diastolic 65–87; PULSE 55–96; RESP 16–18; TEMP 36.2–36.9; O2SAT 94–100
[2023-09-25] MEDS: 0.9% Normal Saline (1000mL) 1,000 ML 125 ML IV ×2 (00:10→08:32)
[2023-09-25 05:33] LABS: Absolute Lymphocyte Count 1.66 X10^3/uL (0.83-4.51); Absolute Neutrophil Count 14.1 X10^3/uL (2.0-7.7); Basophil# 0.04 X10^3/uL; Basophil% 0.2 % (0-1); Eosinophil# 0.01 X10^3/uL; Eosinophils% 0.1 % (0-5); Hematocrit 36.9 % (37-47); Lymphocyte # 1.66 X10^3/ul (0.83-4.51); Mean Corp Hgb Conc 32.5 g/dL (32-36); Mean Corpuscular Hgb 30.8 pg (27.0-32.0); Mean Corpuscular Volume 94.9 fL (81-99); Mean Platelet Vol. 9.7 fl (6.2-12.0); Monocyte# 0.67 X10^3/uL; NRBC Flagged by Analyzer 0 % (0-5); Neutrophil # 14.09 X10^3/uL (2.7-7.7); Platelet Count 346 K/mm3 (150-450); Red Blood Count 3.89 M/mm3 (4.2-5.4); White Blood Count 16.6 K/mm3 (4.4-11.0)
[2023-09-25] MEDS: Piperacil/Tazobactam 3.375 GM in 0.9% Normal Saline (50mL MB+) 50 ML IV ×2 (05:56→13:58)
[2023-09-25 05:57] LABS: ALB/GLOB Ratio 0.8 RATIO (0.9-2.4); AST(SGOT) 60 U/L (15-37); Alanine Aminotransfer ALT/SGPT 89 U/L (13-56); Albumin, Serum 2.9 g/dL (3.2-5.0); Alkaline Phosphatase 130 U/L (45-117); Anion Gap 7 (5-15); BUN 8 mg/dL (7-18); BUN/Creat Ratio 9.1 RATIO (10-20); Calcium,Total 8.4 mg/dL (8.5-10.1); Chloride 109 mmol/L (98-107); Creatinine, Serum 0.88 mg/dL (0.55-1.02); EST Glomerular Filtration Rate 82 mL/min (>60); Est Glom Filt Rate - Afr Amer 99 mL/min (>60); Estimated Creatinine Clearance 93.05 ml/min; Globulin 3.5 g/dL (2.2-4.2); Glucose 120 mg/dL (74-106); Lipase 14 U/L (13-75); Potassium 4.2 mmol/L (3.5-5.1); Protein, Total 6.4 g/dL (6.4-8.2); Sodium Level 140 mmol/L (136-145)
--- NOTE | 2023-09-25 07:23 | PN.SURG_ITS ---
Subjective Subjective Patient seen and examined following a laparoscopic cholecystectomy yesterday with Dr. Ruiz. This morning patient states that her pain is less intense but still present. She describes some brain fog after her operation yesterday. Otherwise she denies any complaints. Objective Data Objective Data Vital Signs: Vital Signs Temp Pulse Resp BP Pulse Ox O2 Del Method O2 Flow Rate 98 F 55 L 16 155/87 H 100 Room Air 2 09/25/23 06:02 09/25/23 06:02 09/25/23 06:02 09/25/23 06:02 09/25/23 06:02 09/25/23 06:02 09/24/23 18:05 Oxygen Flow Rate (L/min) 2 Oxygen Delivery Method Room Air Weight: 162 lb 0.636 oz Body Mass Index (BMI) 28.7 Intake & Output: Intake and Output for Last 24 Hours 09/23/23 09/24/23 09/25/23 23:59 23:59 23:59 Intake Total 1000 / 1000 1247.92 / 1247.92 1600 / 1600 Output Total 1200 / 1200 Balance 1000 / 1000 1247.92 / 1247.92 400 / 400 Lab / Micro Data 09/25/23 05:15 09/25/23 05:15 Labs: Laboratory Results - last 24 hr 09/25/23 05:15: WBC 16.6 H, RBC 3.89 L, Hgb 12.0, Hct 36.9 L, MCV 94.9, MCH 30.8, MCHC 32.5, RDW Std Deviation 42.0, RDW Coeff of Melina 12.0, Plt Count 346, MPV 9.7, Immature Gran % (Auto) 0.700, Neut % (Auto) 85.0 H, Lymph % (Auto) 10.0 L, Garrett % (Auto) 4.0, Eos % (Auto) 0.1, Baso % (Auto) 0.2, Absolute Neuts (auto) 14.1 H, Absolute Lymphs (auto) 1.66, Nucleated RBC % 0, Sodium 140, Potassium 4.2, Chloride 109 H, Carbon Dioxide 24.0, Anion Gap 7, BUN 8, Creatinine 0.88, Estim Creat Clear Calc 93.05, Est GFR (MDRD) Af Amer 99, Est GFR (MDRD) Non-Af 82, BUN/Creatinine Ratio 9.1 L, Glucose 120 H, Calcium 8.4 L, Total Bilirubin 0.60, AST 60 H, ALT 89 H, Alkaline Phosphatase 130 H, Total Protein 6.4, Albumin 2.9 L, Globulin 3.5, Albumin/Globulin Ratio 0.8 L, Lipase 14 Rhythm Strip Rhythm Strip: Sinus Rhythm Rate: 56 Ectopy: None Physical Exam Const oriented x3 Resp normal respiratory effort GI GI Narrative: Operative dressings remain intact in the right upper quadrant and supraumbilical positions. There is scant drainage to the outer bandages. Patient is no appreciable distention and her abdomen is soft. She is predictably tender right around her port sites. Assessment & Plan Assessment/Plan (1) Acute calculous cholecystitis: PLAN: Patient is postoperative day 1 from laparoscopic cholecystectomy with intraoperative cholangiography. The latter demonstrated a common duct stone and gastroenterology consultation was made. Patient is pending ERCP for later today. Patient has been held n.p.o. since midnight. She reports some modest improvement in her discomfort and her exam is as expected today. Her labs show a moderate increase in her white blood cell count but her lipase and LFTs are normal or downtrending. Provided the endoscopy procedure is successful and shaista starks is otherwise clinically stable/able to tolerated diet advancement she should be eligible for discharge to home later today. I did provide some wound care instructions to her and she will need to follow-up with Dr. Ruiz as an outpatient. (2) Choledocholithiasis: PLAN: Confirmed with intraoperative cholangiogram yesterday. Pending ERCP as above. Charges/Coding Visit Charges Inpatient E&M: 90603 Subs Hosp L2
[2023-09-25] MEDS: HYDROmorphone 1 MG/ML Syringe IV ×2 (08:42→14:11)
[2023-09-25] MEDS: 0.9% Normal Saline (1000mL) 1,000 ML 15 ML IV (13:58)
--- NOTE | 2023-09-25 15:10 | RAD_ITS ---
EXAM: INTRAOPERATIVE CHOLANGIOGRAM FLUOROSCOPY TIME: 64 seconds RADIATION DOSE: 14.55 mGy TOTAL NUMBER OF IMAGES: 1 COMPARISON: None. PROVIDED CLINICAL HISTORY: STONES PAIN TECHNIQUE: The examination was performed with physician in attendance. Under fluoroscopic observation, fluoroscopic images were obtained in the operating room. FINDINGS: First image demonstrates surgical instruments overlying the [id number]. Contrast is identified in a cannulated common bile duct. Retrograde contrast is notseen in the pancreatic duct. Contrast is noted in the proximal duodenum. Contrast is seen in the intrahepatic ducts. RAD/ERCP Biliary/Pancreas IMPRESSION: Fluoroscopic assistance images were obtained. Pertinent findings noted above. Electronically Signed: Peter Castellanos MD at 15:47 EST ,
[2023-09-25] MEDS: Lactated Ringers 1,000 ML 15 ML IV (15:30)
--- NOTE | 2023-09-25 15:41 | OP.ERCP_ITS ---
Patient Name: Angelica Nunn Procedure Date: 09/25/2023 2:28 PM Date of : 1995 Age: 27 Procedure: ERCP Indications: Common bile duct stone(s) Providers: Marquis Underwood DO Medicines: Monitored Anesthesia Care Patient Profile: This is a 27 year old female. Refer to note in patient chart for documentation of history and physical. Patient has symptoms of acute right upper quadrant abdominal pain. She is status post laparoscopic cholecystectomy recently. Complications: No immediate complications. Procedure: Pre-Anesthesia Assessment: - Prior to the procedure, a History and Physical was performed, and patient medications and allergies were reviewed. The patient is competent. The risks and benefits of the procedure and the sedation options and risks were discussed with the patient. All questions were answered and informed consent was obtained. Patient identification and proposed procedure were verified by the physician in the pre-procedure area. Mental Status Examination: alert and oriented. Airway Examination: normal oropharyngeal airway and neck mobility. Respiratory Examination: clear to auscultation. CV Examination: normal. Prophylactic Antibiotics: The patient does not require prophylactic antibiotics. Prior Anticoagulants: The patient has taken no anticoagulant or antiplatelet agents. ASA Grade Assessment: II - A patient with mild systemic disease. After reviewing the risks and benefits, the patient was deemed in satisfactory condition to undergo the procedure. The anesthesia plan was to use monitored anesthesia care (MAC). Immediately prior to administration of medications, the patient was re-assessed for adequacy to receive sedatives. The heart rate, respiratory rate, oxygen saturations, blood pressure, adequacy of pulmonary ventilation, and response to care were monitored throughout the procedure. The physical status of the patient was re-assessed after the procedure. After obtaining informed consent, the scope was passed under direct vision. Throughout the procedure, the patient's blood pressure, pulse, and oxygen saturations were monitored continuously. The Duodenoscope was introduced through the mouth, and advanced to the duodenum and used to inject contrast into the bile duct and ventral pancreatic duct. The ERCP was accomplished without difficulty. The patient tolerated the procedure well. Scope In: 3:16:40 PM Scope Out: 3:25:27 PM Total Procedure Duration Time 0 hours 8 minutes 47 seconds Findings: The naval aircrewman operator film was normal. The esophagus was successfully intubated under direct vision. The scope was advanced to a normal major papilla in the descending duodenum without detailed examination of the pharynx, larynx and associated structures, and upper GI tract. The upper GI tract was grossly normal. The bile duct was deeply cannulated with the short-nosed traction sphincterotome. Contrast was injected. I personally interpreted the bile duct and pancreatic duct images. There was brisk flow of contrast through the ducts. Image quality was excellent. Contrast extended to the entire biliary tree. Opacification of the entire biliary tree except for the cystic duct and gallbladder was successful. The maximum diameter of the ducts was 10 mm. The lower third of the main bile duct contained two stones, the largest of which was 6 mm in diameter. The main bile duct was diffusely dilated, with a stone causing an obstruction. The largest diameter was 10 mm. A cholecystectomy had been performed. A straight Roadrunner wire was passed into the biliary tree. A 5 mm biliary sphincterotomy was made with a traction (standard) sphincterotome using ERBE electrocautery. There was no post-sphincterotomy bleeding. The biliary tree was swept with a 12 mm balloon starting at the bifurcation. Sludge was swept from the duct. All stones were removed. Impression: - The entire main bile duct was dilated, with a stone causing an obstruction. - The patient has had a cholecystectomy. - Choledocholithiasis was found. Complete removal was accomplished by biliary sphincterotomy and balloon extraction. - A biliary sphincterotomy was performed. - The biliary tree was swept. Procedure Code(s): --- Professional --- 81420, Endoscopic retrograde cholangiopancreatography (ERCP); with removal of calculi/debris from biliary/pancreatic duct(s) 91982, Endoscopic retrograde cholangiopancreatography (ERCP); with sphincterotomy/papillotomy 38533, 26, Combined endoscopic catheterization of the biliary and pancreatic ductal systems, radiological supervision and interpretation CPT copyright 2021 [employer]. All rights reserved. The codes documented in this report are preliminary and upon field marketing director review may be revised to meet current compliance requirements. Marquis Underwood DO 09/25/2023 3:40:56 PM This report has been signed electronically. Number of Addenda: 0 Note Initiated On: 09/25/2023 2:28 PM
--- NOTE | 2023-09-25 15:41 | OP.CCLET_ITS ---
09/25/2023 No Primary Care Physician Re : ERCP procedure for Angelica Nunn Dear Care Physician This procedure was performed on Monday, September 25, 2023. My impressions and recommendations are as follows: Impressions : - The entire main bile duct was dilated, with a stone causing an obstruction. - The patient has had a cholecystectomy. - Choledocholithiasis was found. Complete removal was accomplished by biliary sphincterotomy and balloon extraction. - A biliary sphincterotomy was performed. - The biliary tree was swept. Recommendations : My findings are described in the full procedure note, which is enclosed. If I can be of further assistance, please feel free to contact me at . Sincerely, Marquis Underwood, 09/25/2023 3:40:56 PM This report has been signed electronically.
--- NOTE | 2023-09-25 15:41 | CASEMGMT ---
RN CM note: RN CM to room x 2 today to complete initial assessment. Pt has been out of room for surgery. RN RABIA to attempt assess at a later time. Joel BSN RN CM
--- NOTE | 2023-09-25 17:25 | PCM.DC.SUM ---
Providers Date of Admission: 09/23/23 Primary Care Physician: Miya Primary Care Phys Consultations 09/24/23 14:26 Consult: Gastroenterology Routine Consulting Provider: Bella Gastroenterjoseph Reason for Consult: Choledocholithiasis EMERGENT Consult: No MD Notified: Yes Date Notified: 09/24/23 Time Notified: 14:27 Method of Notification: Verbal Reason For Visit: ACUTE CHOLECYSTITIS Diagnosis Discharge Diagnosis (1) Acute calculous cholecystitis: Status: Acute Code(s): K80.00 - Calculus of gallbladder with acute cholecystitis without obstruction Plan: Patient is postoperative day 1 from laparoscopic cholecystectomy with intraoperative cholangiography. The latter demonstrated a common duct stone and gastroenterology consultation was made. Patient is pending ERCP for later today. Patient has been held n.p.o. since midnight. She reports some modest improvement in her discomfort and her exam is as expected today. Her labs show a moderate increase in her white blood cell count but her lipase and LFTs are normal or downtrending. Provided the endoscopy procedure is successful and patient is otherwise clinically stable/able to tolerated diet advancement she should be eligible for discharge to home later today. I did provide some wound care instructions to her and she will need to follow-up with Dr. Ruiz as an outpatient. (2) Choledocholithiasis: Status: Acute Code(s): K80.50 - Calculus of bile duct without cholangitis or cholecystitis without obstruction Plan: Confirmed with intraoperative cholangiogram yesterday. Pending ERCP as above. Medications at Discharge Home Medications acetaminophen 325 mg tablet 650 mg (2 x 325 mg) PO Q4H PRN PRN Pain 1-10 Or Fever #0 tabs 09/24/23 oxycodone 5 mg tablet 5 - 10 mg (1 - 2 x 5 mg) PO Q4H PRN PRN Pain Score 4-10/10 5 days #15 tabs 09/24/23 Hospital Course Operations cholecystecomy (With intraoperative cholangiography on 09/24/2023) and ERCP Summary of Care Provided Hospital Course: Patient is a 27-year-old female who was admitted through the ER on 09/24/2023 with diagnosis of acute cholecystitis and possible biliary obstruction. She was taken to the operating room the same day for laparoscopic cholecystectomy with intraoperative cholangiogram by Dr. Ruiz. The suspicion for choledocholithiasis was confirmed intraoperatively with the finding of a filling defect on cholangiogram. Thus gastroenterology was consulted and patient was had n.p.o. the night of surgery for ERCP the following day (today). Patient had successful clearance of her common bile duct and was returned to the floor. Post procedurally she was evaluated and found to have significant improvement in her discomfort. She was started on a full liquid diet. Discharge instructions?including wound care were reviewed with patient and upon confirming her understanding discharged home was granted. Physical Exam Const alert, oriented x3 and no apparent distress Resp normal respiratory effort GI GI Narrative: Operative dressings intact with minimal drainage. Patient's abdomen is soft and minimally tender to palpation around port sites. Weight / BMI Weight Weight: 162 lb 0.636 oz Body Mass Index (BMI) 28.7 ABG / Lab / Microbiology Data 09/25/23 05:15 09/25/23 05:15 Laboratory: Laboratory Results - last 24 hr 09/25/23 05:15: WBC 16.6 H, RBC 3.89 L, Hgb 12.0, Hct 36.9 L, MCV 94.9, MCH 30.8, MCHC 32.5, RDW Std Deviation 42.0, RDW Coeff of Melina 12.0, Plt Count 346, MPV 9.7, Immature Gran % (Auto) 0.700, Neut % (Auto) 85.0 H, Lymph % (Auto) 10.0 L, [place] % (Auto) 4.0, Eos % (Auto) 0.1, Baso % (Auto) 0.2, Absolute Neuts (auto) 14.1 H, Absolute Lymphs (auto) 1.66, Nucleated RBC % 0, Sodium 140, Potassium 4.2, Chloride 109 H, Carbon Dioxide 24.0, Anion Gap 7, BUN 8, Creatinine 0.88, Estim Creat Clear Calc 93.05, Est GFR (MDRD) Af Amer 99, Est GFR (MDRD) Non-Af 82, BUN/Creatinine Ratio 9.1 L, Glucose 120 H, Calcium 8.4 L, Total Bilirubin 0.60, AST 60 H, ALT 89 H, Alkaline Phosphatase 130 H, Total Protein 6.4, Albumin 2.9 L, Globulin 3.5, Albumin/Globulin Ratio 0.8 L, Lipase 14 Radiography Diagnostic Testing: Radiology Impression Cholangiogram 09/24/23 07:13 IMPRESSION: Fluoroscopic assistance for intraoperative cholangiogram. Please see operative report for additional information. Electronically Signed: Nico Bull MD at 8:21 EST , Endo Retro Cholangiopancreatogram 09/25/23 15:10 IMPRESSION: Fluoroscopic assistance images were obtained. Pertinent findings noted above. Electronically Signed: Peter Castellanos MD at 15:47 EST , D/C Instructions Discharge Diet: Light diet - advance as tolerated May shower in (days): 1 Additional Activity Instructions: Pain medication may cause nausea. You should typically eat light foods as you take your pain medications. Pain medication may also cause constipation. If this is a problem for you, please discuss with your doctor. Call your doctor if your incision/area has: Continuous Slow Oozing, Sudden Increased Bleeding, Increased Pain/ Swelling, Increased Redness and Foul Smelling Discharge Call your doctor if you observe: Fever of 101 or Higher Suture Line Care: Avoid Pulling/Pushing and Avoid Pinching/Bending Additional Dressing/Incision Instructions: Leave operative bandaids on for 2 days. When you remove dressing, remove steri strips in 7-10 days Please Follow Up With: Elmer Ruiz MD When: Please call to schedule 2 week follow up appointment. [phone] Meaningful Use Info Meaningful Use Diagnoses (Choose all that apply): None applicable Discharge Plan Admission Admit Date/Time: 09/23/23 23:57 Primary Reason for Your Visit: Cholecystitis Attending Provider: Elmer Ruiz Primary Care Provider: Miya Gonzales Primary Discharge Orders/Prescriptions Prescriptions: New acetaminophen 325 mg Tablet 650 mg PO Q4H PRN PRN (Reason: Pain 1-10 Or Fever) Qty: 0 0RF oxycodone 5 mg Tablet 5 - 10 mg PO Q4H PRN PRN (Reason: Pain Score 4-10/10) 5 Days Qty: 15 0RF Referrals / Follow Up: Care Physician,Miya Primary [Primary Care Provider] - Disposition Disposition (needs filled in before D/C Order can be placed): Home, Self Care Charges/Coding Visit Charges Inpatient E&M: 29688 Disch Hosp
--- NOTE | 2023-09-25 17:41 | NURSING ---
This RN agrees with nursing students charting. Sushila Cardoza MSN, RN
== END 2023-09-25 18:06 | disposition home or self-care (01) | DRG 263 ==
LOC: ED 23:40 → MS3 09-24 00:03
PROVIDERS: Internal Medicine Gastroenterology; Admitting Provider Surgery; Emergency Provider Emergency Medicine; Visit Provider Surgery
PROC: 0FT44ZZ Resection of Gallbladder, Percutaneous Endoscopic Approach (ICD-10-PCS; CPT 47610; principal; 2023-09-24 09:15)
PROC: 0FC98ZZ Extirpation of Matter from Common Bile Duct, Via Natural or Artificial Opening Endoscopic (ICD-10-PCS; CPT 43260; principal; 2023-09-25 14:10)
DX: K80.63 Calculus of gallbladder and bile duct with acute cholecystitis with obstruction (principal); F17.200 Nicotine dependence, unspecified, uncomplicated
CPT/HCPCS: 36415; 74300; 74330; 76000; 76705; 80053; 83690; 84703; 85025; 88304; 93005; 94668; 99284; 99406; J7030; J7040; J7050; J7120; A4216; C1769; J2405

== ENCOUNTER 2023-11-05 17:06 | Emergency (ER) | payer MEDICAID, SELFPAY ==
[2023-11-05 17:07] VITALS: BP 110/72; PULSE 98; RESP 14; TEMP 36.1; O2SAT 99; BMI 28.7
--- NOTE | 2023-11-05 17:27 | EDS_ITS ---
HPI History of Present Illness Chief Complaint: Other, Pain/Inj Detail of Chief Complaint: Facial swelling and redness on the right side Informant: patient Onset/Context/Timing Onset: Today (Awoke from sleep this morning with swelling and redness) Context: Sudden Onset Timing: Continuous Quality: Pain Location: Right side of the face Current Severity: Mild Maximum Severity: Severe Worsened by: Palpation Relieved by: Nothing Associated Symptoms Associated Symptoms: No other symptoms Narrative Narrative: Patient is a 27-year-old female. She presents because when she awoke this morning she noted swelling and redness of right side of her face over the right maxillary region and body of the mandible. She denies dental pain. She denies difficulty opening closing her mouth. Denies change in voice. She denies neck pain or neck stiffness. She denies history medic fever, SBE or being immune suppressed. Patient delivered a baby girl August 23, 2023. She states she has not had intercourse since. She denies any symptoms of . Patient denies fever or chills. Patient denies headache. Patient denies visual symptoms. Patient denies photophobia. Patient denies ear pain or ringing in ears. Patient denies decreased hearing. Patient denies prior symptoms. Prior similar symptoms: No Recent Illness/Hospitalization: No PFSH [facility] Medical History Asthma Autism Home Medications amoxicillin 875 mg-potassium clavulanate 125 mg tablet 875 mg (0.875 x 875-125 mg) PO Q12H #14 TABLETS 11/05/23 [Rx Last Taken Unknown] Allergy/AdvReac Type Severity Reaction Status Date / Time No Known Allergies Allergy Verified 11/05/23 17:09 Social History (Updated 11/05/23 @ 17:[address] Bud Cannon MD) household members: children Smoking Status: Current every day smoker tobacco type: cigarettes and e- cigarettes ROS ROS ED Constitutional Constitutional ED: Denies chills, fever(s), subjective or sweats Eyes Eyes: Denies blurry vision, change in vision or diplopia ENT ENT ED: Reports other Details: Per HPI negative ; Denies ear pain, rhinorrhea or sore throat Cardiovascular Cardiovascular: Denies chest pain, palpitations or racing heartbeat Respiratory/Chest Respiratory/Chest: Denies cough or dyspnea Gastrointestinal Gastrointestinal: Denies abdominal pain, nausea or vomiting Genitourinary Genitourinary ED: Denies dysuria, hematuria or urinary frequency Musculoskeletal Musculoskeletal: Denies arthralgias, myalgias or neck pain Integumentary Reports rash Endocrine Endocrinology: Denies cold intolerance or heat intolerance Hematologic/Lymphatic Hematologic/Lymphatic: Reports systems reviewed and no addt'l complaints, except as documented Allergic/Immunologic Allergic/Immunologic ED: Denies mouth swelling, tongue swelling or urticaria EXAM Physical Exam Const Vital Signs: 11/05/23 17:07 11/05/23 18:06 Temperature 97 F L Temperature Source Temporal Pulse Rate 98 Respiratory Rate 14 Respiratory Effort Normal Respiratory Pattern Normal Blood Pressure 110/72 Blood Pressure Mean 84 Pulse Ox 99 Oxygen Delivery Method Room Air Positive well nourished and well developed Constitutional Narrative: Patient is unkept. General Appearance ED: well developed and NAD; Negative for pallor HEENT Reports TM's clear and moist mucous membranes HEENT Narrative: There is no dental pathology noted. Uvula midline. No deviation of protrusion. There is no erythema exudate the posterior pharynx. There is no trismus. Patient does have swelling over the body of the mandible on the right with possible fluctuance. There is erythema and warmth. There is no induration. There is no truly outline raised area to raise concern for erysipelas. tenderness; Negative for trauma Tympanic Membrane ED: Yes TM's clear Eyes PERRL and EOMs intact bilaterally Neck no lymphadenopathy, supple and no JVD Chest Wall inspection of chest normal and palpation of chest normal Resp normal respiratory effort and clear to auscultation bilaterally Cardio regular rate, regular rhythm, S1 normal heart sound, S2 normal heart sound and no murmurs GI normal to inspection, nondistended, normoactive bowel sounds, non-distended and no masses; Negative for hepatosplenomegaly Back/Spine no CVA tenderness Extremity normal to inspection General Extremety ED: Negative for edema or tenderness General Extremity: Negative for edema Neuro oriented x3, CN's II-XII intact bilaterally and no sensory deficits noted Sensorium / Orientation: alert Motor Exam: strength 5/5 throughout Psych mental status grossly normal Skin no rashes or lesions noted, no wounds and skin turgor normal General Skin Exam: elasticity normal; Negative for jaundice or pallor MDM MDM MDM Narrative Medical decision making narrative: Frontal diagnosis is facial cellulitis versus cellulitis with abscess since patient has significant swelling that occurred abruptly will obtain CT to determine there is an abscess. There is an abscess will drain otherwise we will treat with antibiotics. Blood work was obtained assess anemia and white count. BMP to assess renal function. Since patient recently delivered has not been sexually active (was obtained. Since she has no allergy to penicillin 3.0 g of Unasyn was ordered. Lab Data Attestation: I reviewed the patient's lab results. Lab results narrative: White count is normal. H&H is normal. Differential is normal. Electrolyte panel is normal. Labs: Laboratory Results - last 24 hr 11/05/23 17:36 WBC 10.0 RBC 4.31 Hgb 12.8 Hct 39.4 MCV 91.4 MCH 29.7 MCHC 32.5 RDW Std Deviation 42.0 RDW Coeff of Melina 12.4 Plt Count 317 MPV 9.7 Immature Gran % (Auto) 0.300 Neut % (Auto) 68.7 Lymph % (Auto) 19.7 [place] % (Auto) 8.4 Eos % (Auto) 2.3 Baso % (Auto) 0.6 Absolute Neuts (auto) 6.8 Absolute Lymphs (auto) 1.96 Nucleated RBC % 0 Sodium 141 Potassium 3.4 L Chloride 111 H Carbon Dioxide 26.0 Anion Gap 4 L BUN 10 Creatinine 1.06 H Estim Creat Clear Calc 77.31 Est GFR (MDRD) Af Amer 80 Est GFR (MDRD) Non-Af 66 BUN/Creatinine Ratio 9.4 L Glucose 132 H Calcium 9.0 Radiography Diagnostic Testing: Clinical Impression(s) from Imaging Studies Facial/Sinus 11/05/23 17:47 IMPRESSION: Soft tissue swelling right cheek. No definite macro abscess but small dental abscess may be difficult to exclude. Electronically Signed: Randall Rico MD at 18:37 EDT , Treatment and Re-Evaluation :: Patient's history and physical is consistent with cellulitis. This may represent erysipelas. Will treat with Augmentin. Patient was discharged to home. She is to follow-up with her doctor in 2 to 3 days. Discharge Plan Triage Chief Complaint: Other, Pain/Inj ED Provider: Bud Cannon Dx/Rx/DC Orders Clinical Impression: Tobacco dependence, Cellulitis of face, Marijuana use, Anxiety Instructions: ED Cellulitis, Facial Prescriptions: New amoxicillin-pot clavulanate [amoxicillin-pot clavulanate] 875-125 mg tablet 875 mg PO Q12H Qty: 14 0RF Primary Care Provider: Care Physician,No Primary Referrals: Hemalatha Mcclellan MD [Med Staff - Wine Cellar Stock Clerk] - 2 Days for wound check Care Physician,No Primary [Primary Care Provider] - Disposition Disposition: Home, Self Care
--- NOTE | 2023-11-05 17:47 | CT_ITS ---
STUDY: CT FACIAL BONES WITH CONTRAST REASON FOR EXAM: Female, 27 years old. Right-sided facial swelling with erythema -- Concern for abscess delivered August 23, not sexu RADIATION DOSAGE (If Supplied By Facility): CTDIvol = ( 29.38 ) mGy, DLP = ( 606.22 ) mGycm TECHNIQUE: The patient was scanned in a multi detector CT scanner. Transaxial imaging was performed following the intravenous administration of 100ML ISOVUE 370. Sagittal and coronal images were reconstructed. Individualized dose optimization techniques were used for this CT. COMPARISON: None. FINDINGS: Soft tissue swelling right cheek. Normal orbital dodd and orbital contents. Normal nasal bones and anterior nasal spine. Normal facial bones. There is no demonstrated fracture. Normal visualized paranasal sinuses. CT/Sinus/Facial Bone WITH Contras IMPRESSION: Soft tissue swelling right cheek. No definite macro abscess but small dental abscess may be difficult to exclude. Electronically Signed: Randall Rico MD at 18:37 EDT ,
[2023-11-05 17:56] LABS: Absolute Lymphocyte Count 1.96 X10^3/uL (0.83-4.51); Absolute Neutrophil Count 6.8 X10^3/uL (2.0-7.7); Basophil# 0.06 X10^3/uL; Basophil% 0.6 % (0-1); Eosinophil# 0.23 X10^3/uL; Eosinophils% 2.3 % (0-5); Hematocrit 39.4 % (37-47); Hemoglobin 12.8 g/dL (12.0-15.0); Lymphocyte # 1.96 X10^3/ul (0.83-4.51); Lymphocyte % 19.7 % (19-41); Mean Corp Hgb Conc 32.5 g/dL (32-36); Mean Corpuscular Hgb 29.7 pg (27.0-32.0); Mean Corpuscular Volume 91.4 fL (81-99); Mean Platelet Vol. 9.7 fl (6.2-12.0); Monocyte# 0.84 X10^3/uL; Monocyte% 8.4 % (0-10); NRBC Flagged by Analyzer 0 % (0-5); Neutrophil # 6.83 X10^3/uL (2.7-7.7); Neutrophil % 68.7 % (47-70); Platelet Count 317 K/mm3 (150-450); RBC Distribution Width CV 12.4 % (11.6-14.6); Red Blood Count 4.31 M/mm3 (4.2-5.4)
[2023-11-05] MEDS: Ampicillin/Sulbactam 3 GM in 0.9% Normal Saline (100mL MB+) 100 ML IV (18:09)
[2023-11-05 18:10] LABS: Anion Gap 4 (5-15); BUN 10 mg/dL (7-18); BUN/Creat Ratio 9.4 RATIO (10-20); Chloride 111 mmol/L (98-107); Creatinine, Serum 1.06 mg/dL (0.55-1.02); EST Glomerular Filtration Rate 66 mL/min (>60); Est Glom Filt Rate - Afr Amer 80 mL/min (>60); Estimated Creatinine Clearance 77.31 ml/min; Glucose 132 mg/dL (74-106); Potassium 3.4 mmol/L (3.5-5.1); Sodium Level 141 mmol/L (136-145)
[2023-11-05 19:06] VITALS: BP 134/78; PULSE 74; PULSE 78; RESP 16; TEMP 36.9; O2SAT 100
== END 2023-11-05 19:38 | disposition home or self-care (01) ==
PROVIDERS: Emergency Provider Emergency Medicine; Visit Provider Emergency Medicine
DX: L03.211 Cellulitis of face (principal); F17.210 Nicotine dependence, cigarettes, uncomplicated; F41.9 Anxiety disorder, unspecified; F12.90 Cannabis use, unspecified, uncomplicated; J45.909 Unspecified asthma, uncomplicated; F84.0 Autistic disorder; F17.290 Nicotine dependence, other tobacco product, uncomplicated
CPT/HCPCS: 70487; 80048; 85025; 96365; 99284; J7030; J7050; Q9967; A4216; J0295

== ENCOUNTER 2024-05-06 13:25 | Outpatient (CLI) | payer MEDICAID, SELFPAY ==
[2024-05-06 13:36] VITALS: PULSE 72; O2SAT 99
[2024-05-06 13:38] VITALS: BP 112/57; PULSE 70
[2024-05-06 13:40] VITALS: BP 112/57; PULSE 86; RESP 15; TEMP 36.7; O2SAT 99
[2024-05-06 14:37] LABS: Bacteria 0 SEEN /hpf (None Seen); Mucous, Urine 0 SEEN /hpf (<or=2+); Red Blood Cells-Urine 0 SEEN /hpf (0-5); White Blood Cells 0 SEEN /hpf (0-5)
[2024-05-06 14:45] LABS: Color, Urine Yellow (Yellow); Glucose, Dipstick Normal (Normal); Ketone-Dipstick Negative (Negative); Leukocyte Esterase-Dipstick 25 /ul (Negative); Nitrite-Dipstick Negative (Negative); Occult Blood-Urine Negative /ul (Negative); Protein-Dipstick 15 mg/dl (Negative); Urine Bilirubin Dipstick Negative (Negative); Urine Clarity Cloudy (Clear); Urine Urobilinogen Normal (Normal)
[2024-05-06 14:52] LABS: Amorphous Sediment 2+; Squamous Epithelial Cells - UA 0-5 SEEN /hpf (5-10)
[2024-05-06 15:10] LABS: Absolute Lymphocyte Count 2.03 X10^3/uL (0.83-4.51); Absolute Neutrophil Count 7.9 X10^3/uL (2.0-7.7); Basophil# 0.07 X10^3/uL; Basophil% 0.6 % (0-1); Eosinophil# 0.27 X10^3/uL; Eosinophils% 2.4 % (0-5); Hematocrit 33.7 % (37-47); Hemoglobin 11.1 g/dL (12.0-15.0); Lymphocyte # 2.03 X10^3/ul (0.83-4.51); Lymphocyte % 18.4 % (19-41); Mean Corp Hgb Conc 32.9 g/dL (32-36); Mean Corpuscular Hgb 31.4 pg (27.0-32.0); Mean Corpuscular Volume 95.2 fL (81-99); Mean Platelet Vol. 9.9 fl (6.2-12.0); Monocyte# 0.65 X10^3/uL; Monocyte% 5.9 % (0-10); NRBC Flagged by Analyzer 0 % (0-5); Neutrophil % 71.5 % (47-70); Platelet Count 313 K/mm3 (150-450); RBC Distribution Width SD 45.3 fl (35.1-43.9); Red Blood Count 3.54 M/mm3 (4.2-5.4); White Blood Count 11.1 K/mm3 (4.4-11.0)
[2024-05-06 15:13] LABS: Amphetamine Urine VISTA NEGATIVE (<1000 ng/mL); Barbiturate Urine VISTA NEGATIVE (< 200 ng/mL); Benzodiazepine Urine VISTA NEGATIVE (< 200 ng/mL); Cocaine Urine VISTA NEGATIVE (< 300 ng/mL); Ecstacy Urine VISTA NEGATIVE (< 500 ng/mL); Methadone Urine VISTA NEGATIVE (< 300 ng/mL); PCP Urine VISTA NEGATIVE (< 25 ng/mL); THC Urine VISTA POSITIVE (< 50 ng/mL); Vista UDS pH Range 7
[2024-05-06 15:58] LABS: HIV - WCH Non-Reactive (Nonreactive); Rubella IgG Reactive (Nonreactive); Syphilis Antibodies Non-reactive
[2024-05-06 16:17] LABS: Hepatitis B Surface Antigen Non-Reactive (Nonreactive); Hepatitis C Antibody Non-Reactive (Nonreactive)
--- NOTE | 2024-05-06 19:01 | OB.TRI.HP_ITS ---
HPI - General General Date of Admission: 05/06/24 Date of Service: 05/06/24 Chief Complaint: Abdominal pain HPI Narrative KATHIA LERMA, is a 28 F who presents by EMS from care center with abdominal pain. Unknown gestational age. Has not had any care yet this but is believed to be about 25 weeks. No bleeding or leaking. Pain consistent with round ligament pain. labs drawn while present. Maternal Data Information Gestational age: 25 PFSH PFSH Medical History Asthma Autism Home Medications ?Medication ?Instructions ?Recorded ?Last Taken ?Type amoxicillin 875 mg-potassium 875 mg PO Q12H #14 TABLETS 11/05/23 Unknown Rx clavulanate 125 mg tablet Allergy/AdvReac Type Severity Reaction Status Date / Time No Known Allergies Allergy Verified 11/05/23 17:09 Social History (Updated 11/05/23 @ 17:[address] Bud Cannon MD) household members: children Smoking Status: Current every day smoker tobacco type: cigarettes and e- cigarettes History 4 Elective abortions Hx Para 2 Spontaneous abortions 1 Hx # Term Pregnancies Ectopic pregnancies Hx # Pregnancies Multiple births # of living children 1 NST FHR Rate Baby A Baseline: 130 Variability:: Moderate NST Reactive:: Appropriate for gestational age Uterine Activity:: none Assessment & Plan (1) Abdominal pain affecting : PLAN: Plan Needs to establish care for
--- NOTE | 2024-05-06 21:03 | CASEMGMT ---
Social Work Received notice at around 1530 of need for social work consult for social history and resources. Patient with history of mental health history, substance use, loss, child loss, and most recent child born in August 2023 being in custody of children services. Responded to WP at approximately 1630 and found that patient had just left, and no longer wanted to wait to speak with rn social work. From conversation with client server developer, patient is making an adoption plan for this , and is talking with [facility]. Patient reportedly with no PNC to this point, outside of one visit to the Care Center for an ultrasound; anticipated NAYANA is sometime in July 2024. Plan: SW will plan to see patient at delivery, or before should patient present to [facility] again and have a SW consult requested. -CHANDU Martinez
== END 2024-05-06 16:25 | disposition home or self-care (01) ==
LOC: WPOUT 13:31 → WP 13:32
PROVIDERS: Referring Provider Obstetrics & Gynecology; Visit Provider Obstetrics & Gynecology
DX: O99.891 Other specified diseases and conditions complicating pregnancy (principal); O99.342 Other mental disorders complicating pregnancy, second trimester; R10.9 Unspecified abdominal pain; F84.0 Autistic disorder; Z3A.25 25 weeks gestation of pregnancy
CPT/HCPCS: 36415; 80307; 81001; 85025; 86703; 86762; 86780; 86803; 87340; 87491; 87591; 87653; 99221; G0378

== ENCOUNTER 2024-08-02 05:16 | Inpatient (IN) | payer MEDICAID, SELFPAY ==
[2024-08-02] VITALS (43 sets, daily range): BP systolic 104–166; BP diastolic 55–91; PULSE 52–111; RESP 14–22; TEMP 36.1–37.1; O2SAT 95–99; BMI 30.8
[2024-08-02 02:01] LABS: ROM Internal Control Test YES-OK TO RESULT pt. (Internal QC); ROM Patient Test Negative (Negative); Record Kit Lot#, ROM+ K2451
[2024-08-02 02:15] LABS: Amphetamine Urine VISTA NEGATIVE (<1000 ng/mL); Barbiturate Urine VISTA NEGATIVE (< 200 ng/mL); Benzodiazepine Urine VISTA NEGATIVE (< 200 ng/mL); Cocaine Urine VISTA NEGATIVE (< 300 ng/mL); Ecstacy Urine VISTA NEGATIVE (< 500 ng/mL); Methadone Urine VISTA NEGATIVE (< 300 ng/mL); PCP Urine VISTA NEGATIVE (< 25 ng/mL); THC Urine VISTA NEGATIVE (< 50 ng/mL); Vista UDS pH Range 7
[2024-08-02] MEDS: Lactated Ringers 1,000 ML 50 ML IV (05:30)
[2024-08-02] MEDS: fentaNYL 100 MCG/2 ML Ampul IV (05:37)
[2024-08-02 05:58] LABS: Absolute Lymphocyte Count 2.06 X10^3/uL (0.83-4.51); Basophil# 0.05 X10^3/uL; Basophil% 0.6 % (0-1); Eosinophil# 0.11 X10^3/uL; Eosinophils% 1.2 % (0-5); Hematocrit 31.1 % (37-47); Hemoglobin 10.7 g/dL (12.0-15.0); Lymphocyte # 2.06 X10^3/ul (0.83-4.51); Lymphocyte % 23.2 % (19-41); Mean Corp Hgb Conc 34.4 g/dL (32-36); Mean Corpuscular Hgb 31.7 pg (27.0-32.0); Mean Platelet Vol. 11.1 fl (6.2-12.0); Monocyte% 6.7 % (0-10); NRBC Flagged by Analyzer 0 % (0-5); Neutrophil # 6.03 X10^3/uL (2.7-7.7); Neutrophil % 67.9 % (47-70); Platelet Count 350 K/mm3 (150-450); RBC Distribution Width CV 12.8 % (11.6-14.6); RBC Distribution Width SD 42.8 fl (35.1-43.9); Red Blood Count 3.38 M/mm3 (4.2-5.4); White Blood Count 8.9 K/mm3 (4.4-11.0)
[2024-08-02] MEDS: Penicillin G Pot 5,000,000 UNITS in 0.9% Normal Saline (100mL MB+) 100 ML 150 UNITS IV (06:32)
[2024-08-02] MEDS: Oxytocin 15 Units/NS 250ml 15 UNITS/250 ML IV.SOLN 2 UNITS IV (07:27)
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
[2024-08-02 09:03] LABS: Syphilis Antibodies Non-reactive
[2024-08-02] MEDS: Oxytocin 15 Units/NS 250ml 15 UNITS/250 ML IV.SOLN 334 UNITS IV (09:51)
--- NOTE | 2024-08-02 10:06 | EX.PCM.OBVAG ---
Maternal Data Information NAYANA Calculator Estimated Delivery Date Method Current WG Current Estimate 08/01/24 Manual 40w 1d Vaginal Delivery Maternal Presentation Maternal Presentation: Active Labor Type of Induction: Pitocin Vaginal Delivery Information Procedure Performed: Spontaneous Vaginal Delivery Surgeon/Practitioner: Alla Butterfield Date of Procedure: 08/02/24 Pre-Procedure Diagnosis: Labor Post-Procedure Diagnosis: Labor Type of anesthesia: Epidural Estimated Blood Loss: 300ml Findings Description of procedure: Patient precipitously delivered in bed while attempting to get an epidural. 3VC clamped and cut in delayed fashion. Placenta delivered with gentle traction and good uterine tone obtained. Presentation: Vertex Amniotic Membrane Rupture Type: Artificial Amniotic Fluid Description: Clear Placental Delivery Description: Expressed Placenta Disposition: [facility] Cord Vessel Description: 3 Vessels Cord Entanglement: None A Gender: Female (1 minute): 7 (5 minute): 9 Delayed Cord Clamping: Yes Platform Software Engineer validation technician: No Post Vaginal Deli Medications given after delivery: IV Pitocin Episiotomy Description: None Laceration: None Complication Complications: No
[2024-08-02] MEDS: Ketorolac 30 MG/ML Syringe IV (10:11)
[2024-08-02] MEDS: Oxytocin 15 Units/NS 250ml 15 UNITS/250 ML IV.SOLN 83 UNITS IV (10:56)
[2024-08-02] MEDS: Methylergonovine 0.2 MG/ML Ampul IM (12:19)
[2024-08-02] MEDS: Acetaminophen 500 MG Tablet 1000 MG PO (12:22)
--- NOTE | 2024-08-02 15:25 | NURSING ---
1455-Dr. Butterfield' nurse notified that pt's FF U/2 for first hour of recovery and then FF 2/U so RN assisted pt up to BR to attempt to void and voided 300cc and then several large clots came out. Methergine 0.2 mg IM given in rt thigh. FF U/2 and then some more clots noted at 1445 when RN checked fundus again. RN obtained pads from laundry and trash to weigh-totalling 932 gms. RODY Latif gave report and notified that RN was waiting manager employee relations back from Dr. Butterfield if she wanted any labs drawn or anything else given. Fresh pad on pt and bleeding seems to be controlled at this time and FF U/2.
[2024-08-02] MEDS: Rho(D) Immune Globulin 300 MCG (1500 Unit) Syringe IV (19:29)
[2024-08-02] MEDS: MEASLES,MUMPS,RUBELLA VACC/PF 0.5 ML SC (20:27)
[2024-08-03 00:15] VITALS: BP 116/56; PULSE 101; PULSE 104; RESP 15; TEMP 36.6; O2SAT 97; O2SAT 98
[2024-08-03 03:37] VITALS: BP 113/55; PULSE 78; PULSE 84; RESP 15; TEMP 36.2; O2SAT 98
--- NOTE | 2024-08-03 08:47 | PN_ITS ---
Progress Note Pain well controlled, average lochia. Physical Exam Const alert and no apparent distress Narrative: Fundus firm, below umbilicus. Assessment & Plan Assessment/Plan (1) (spontaneous vaginal delivery): PLAN: PPD#1 routine care bottle feeding likely d/c home tomorrow human services case manager to visit w/ patient today
[2024-08-03 08:57] VITALS: BP 120/69; PULSE 85; RESP 16; TEMP 36.9; O2SAT 99
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
[2024-08-03 13:53] VITALS: BP 132/61; PULSE 97; RESP 16; TEMP 37.1; O2SAT 99
--- NOTE | 2024-08-03 15:18 | CASEMGMT ---
Labor and Delivery Case Management/ Technical Trainer Date: 08/03/24 Time: 1045 Sw called [facility] and spoke to hotline screener, Megan regarding concerns of mother of baby (MOBRubén Dominguez) having baby, Belle. Sw explained that concerns are in regarding to dependency, including: mental health concerns and history, +THC 05/02, lack of heat in the home, bed bugs and fleas in the home, and current open case with [facility] which has resulted in temporary custody of that child to be with [facility] and in kinship placement in [place]. - Megan took report and stated that an machine operator hop worker will touch base with this manager social services. 1215: psychiatric social worker, Bahman reported to Labor and Delivery unit to meet with MOB. Sw accompanied Bahman to MOB's room and introduced MOB to Bahman. 1300: Bahman informed this manager social services that at this time MOB is not agreeing to a safety plan. Bahman states that she is going to file in court today and ask that temporary custody go to [facility]. Bahman states that the head scorer will christina that request either this afternoon or tomorrow morning. Bahman stated that she will return to the hospital tomorrow (08/04) to meet with MOB again. Ernst stated that from a medical standpoint MOB and baby will be ready for discharge. Bahman states that when the head scorer grants temporary custody to [facility] either herself or another worker will be the identified discharge plan for baby. - Ernst informed bedside RN of information above. Eduard Toribio, HANGER, BEAN WEIGHER
[2024-08-03 20:30] VITALS: BP 135/58; PULSE 101; O2SAT 99
[2024-08-03 20:33] VITALS: BP 135/58; PULSE 96; RESP 16; TEMP 36.8; O2SAT 99
[2024-08-04 01:35] VITALS: BP 119/70; PULSE 100; RESP 16; TEMP 36.6; O2SAT 98
[2024-08-04 01:36] VITALS: BP 119/70; PULSE 108
[2024-08-04 08:13] VITALS: BP 122/61; PULSE 101; O2SAT 99
[2024-08-04 08:15] VITALS: BP 122/61; PULSE 100; RESP 16; TEMP 37; O2SAT 99
--- NOTE | 2024-08-04 11:15 | PCM.PROGNOTE ---
Subjective Subjective patient seen at bedside, emotionally upset after visit with SW. Patient reports good pain control. lochia mild. Objective Data Objective Data Vital Signs: Vital Signs Temp Pulse Resp BP Pulse Ox O2 Del Method 98.6 F 100 16 122/61 H 99 Room Air 08/04/24 08:15 08/04/24 08:15 08/04/24 08:15 08/04/24 08:15 08/04/24 08:15 08/04/24 08:15 Oxygen Delivery Method Room Air Weight: 86.636 kg Body Mass Index (BMI) 30.8 Intake & Output: Intake and Output for Last 24 Hours 08/02/24 08/03/24 08/04/24 23:59 23:59 23:59 Intake Total 2229.43 / 2229.43 Output Total 1732 / 1732 Balance 497.43 / 497.43 Lab / Micro Data 08/02/24 05:25 Micro: Microbiology 08/02/24 01:00 Genital vaginal Group B Streptococcus (PCR) - Final Streptococcus Group B Physical Exam Narrative abd: fundus firm Const alert and oriented x3 General Appearance: cooperative HEENT normocephalic Neck General: normal visual inspection GI soft to palpation and non-distended GI Narrative: Fundus firm Extremity normal to inspection and no calf tenderness Skin no rashes or lesions noted Neuro oriented x3 and CN's II-XII intact bilaterally Psych mental status grossly normal Assessment & Plan Assessment/Plan (1) Limited care: (2) (spontaneous vaginal delivery): (3) Vaginal delivery: (4) Polysubstance use disorder: PLAN: Plan PPD#2 , Doing well Routine care pain mgmt ambulation plan for dc home after 2pm - courts decision will return at that time instructed patient on scheduling appts PP in one week and 6 weeks and getting assistance with transportation in needed time spent with patient face to face on day of discharge was <30min
--- NOTE | 2024-08-04 11:22 | DCINST_ITS ---
Discharge Instructions Diet Discharge Diet: No restrictions DC O2, CPAP, BIPAP needs Home O2 Discharge instructions: No Dressing / Incision May resume sexual activity in: 6-8 weeks Dressing / Incision Call your doctor if you observe: Fever of 101 or Higher, Inability to urinate, Using more than 1 pad per hour and Uncontrolled pain Follow Up Care Please Follow Up With: Alla Butterfield MD When: 1-2 weeks post and again at 6 weeks post . [phone] Test Results: Test results from this visit will be discussed in further detail at your follow- up appointment, if applicable. Discharge Plan Admission Admit Date/Time: 08/02/24 05:16 Attending Provider: Alla Butterfield Primary Care Provider: Care PhysicianMiya Primary Discharge Orders/Prescriptions Prescriptions: New acetaminophen 500 mg Tablet 1,000 mg PO Q6H PRN PRN (Reason: Pain 1-10 Or Fever) Qty: 0 0RF ibuprofen 600 mg Tablet 600 mg PO Q6H PRN PRN (Reason: Pain Score 1-10) Qty: 0 0RF Continued PNV cmb#95-ferrous fumarate-FA [] 28 mg iron- 800 mcg tablet 1 tab PO DAILY Referrals / Follow Up: Care Physician,Miya Primary [Primary Care Provider] - Disposition Disposition (needs filled in before D/C Order can be placed): Home, Self Care
--- NOTE | 2024-08-04 12:44 | NURSING ---
Pt. tearful and distracted due to baby discharging with CPS. States she had same instructions with baby born less than year ago and declines further teaching. Encouraged follow up in office with her doctor and support person instructed on signs of depression to be alert to. Verbalized understanding.
--- NOTE | 2024-08-04 12:50 | CASEMGMT ---
Social Work Brief Assessment - Labor and Delivery Unit Patient Address: [address] [place] [address] Phone number: [phone] Date and Time of Referral:? 08/02/24, 0532 Referred By: Malissa Harrison Date and time of intervention:?08/04/24, 0900- ongoing throughout day. Reason for Referral:?? Mental health History:? Sw received phone call from assigned structural steel worker apprentice, Bahman, who informed sw that she presented to bedside already this morning and attempted to have MOB agree to safety plan that they have put in place. Bahman reports at this time, MOB continues to disagree with the safety plan, so in that case Bahman is going to be filing for temporary emergency custody of within the hour. Bahman states that once emergency temporary custody (ETC) is obtained from the court, she will present back to hospital for to be discharged. Ernst informed by bedside RN that mother of baby (FOUZIA Dominguez) has been raising her voice throughout the morning towards staff and expressing frustration with identified plan that [facility] ([facility]) has put in place. Sw presented to bedside and met with MOB. - Sw informed MOB that she needs to speak in a calm and low tone due to other patient's being on unit and needs to be respectful towards nursing staff as they are only working to provide safe and adequate care to MOB. MOB expressed understanding, however throughout ongoing conversation with sw did continue to raise her voice, speak in a defensive tone and appear agitated. - Ernst informed MOB that sw role is to provide support, education and linkage to resources as appropriate to MOB and baby. Ernst reiterated to MOB that the hospital will coordinate a discharge plan according to the [facility]. MOB states that she had a plan identified already that indicated baby would be placed with the caregivers who already have placement of her 11 months old who reside in [place]. Ernst explained that it is this sw'er understanding that [facility] plan on having baby be placed with that family, however due to that family residing in [place], it is not something that can take place immediately. MOB continued to express her frustration, and stated that she will have the baby leave with her, she will sign documents with the family in [place] and then the baby can go with them. Ernst again explained to MOB that unfortunately that is not how discharge will work at this time. - Ernst explained to MOB that she needs to comply with the plan that children services has put in place and encouraged MOB to follow their guidelines. Sw informed MOB that if she continues to make statements of taking baby from hospital when baby is no longer in her custody sw will need to notify the hospital police who can be on unit at time of discharge. - Ernst asked MOB where father of baby (SHIRA Maddox) is. Sw asked if he is planning on coming to the hospital to see baby prior to discharge. MOB stated that at this time he is at their home, protecting it so that no one breaks in and steals from them. Sw asked if FOB was present at time of delivery, and MOB stated that he was not. Sw offered support due to the fact that MOB has been present at hospital this whole time without anyone supporting her from time of delivery to now. MOB became tearful and stated that it is okay and she will see if FOB can come to the hospital prior to discharge to see baby. - Ernst asked MOB if she would like assistance getting connected to a mental health professional who would be able to help her manage her mental health issues and symptoms during this period that will potentially be difficult for MOB. MOB states that receiving a psychiatric evaluation is part of [facility] case plan [facility] and they are going to help her get it scheduled. - Ernst informed MOB that children services worker will be coming to hospital soon in preparation for MOB and baby discharge. 1145: Ernst received phone call from Bahman who states that she received the ETC order and will be on her way to the hospital for baby to be discharged. - Ernst called public safety to ensure that they could be present on unit for when MOB and baby are discharged. They presented to unit and received information regarding concerns. [id number]: Bahman presented to hospital with ETC order. Ernst placed documents in chart to be scanned into medical record, along with copy of Bahman's photo ID. MOB received discharge orders and left unit peacefully with TALAT. - discharge orders placed and left unit with MELISSA RuggieroKailee provider relations representative/ intake heel caser. Assessment:? . Baby was placed into emergency temporary custody of [facility]. field crop ii farmworker provided appropriate court documentation indicating so, documents scanned into chart. MOB observed to be overwhelmed, frustrated and understandably upset throughout morning and until time of discharge. MOB and FOB appear to be resistant to work cooperatively with children services, which resulted in the change in custody for baby. Plan:??MOB and baby discharged from unit today, baby left with structural steel worker apprentice who is [facility] provider relations representative, who has emergency temporary custody of at this time. ? No further needs requested or indicated. Eduard Toribio, [employer]ARN[employer]ER, [employer]
--- NOTE | 2024-08-08 13:37 | NURSING ---
Spoke with patient for discharge phone call. Patient states overall she is feeling well. Her bleeding is light and no clots. Patient denies a headache, visual disturbances, or flu-like symptoms. Patient denies any pain. Patient states her care overall was great and overall her nurses were wonderful. Patient denies any questions at this time.
== END 2024-08-04 12:30 | disposition home or self-care (01) | DRG 560 ==
LOC: WPOUT 05:24 → WP 05:24
PROVIDERS: Admitting Provider Obstetrics & Gynecology; Referring Provider Advanced Practice Midwife; Visit Provider Obstetrics & Gynecology
DX: O76 Abnormality in fetal heart rate and rhythm complicating labor and delivery (principal); Z37.0 Single live birth; O99.344 Other mental disorders complicating childbirth; F17.210 Nicotine dependence, cigarettes, uncomplicated; F31.9 Bipolar disorder, unspecified; O99.324 Drug use complicating childbirth; F17.290 Nicotine dependence, other tobacco product, uncomplicated; F19.90 Other psychoactive substance use, unspecified, uncomplicated; O99.334 Smoking (tobacco) complicating childbirth; O99.824 Streptococcus B carrier state complicating childbirth; Z3A.40 40 weeks gestation of pregnancy; Z87.59 Personal history of other complications of pregnancy, childbirth and the puerperium
CPT/HCPCS: 59025; 59050; 80307; 84112; 85025; 85461; 86780; 86850; 86900; 86901; 87653; 90384; 99221; G0378; J2790; J2791